=== PATIENT | male | born 1960 | race Caucasian/White ===

== ENCOUNTER 2017-05-13 17:10 | Emergency (ER) | payer BC, SELFPAY | END 2017-05-13 18:22 | disposition home or self-care (01) | PROVIDERS: Emergency Provider Nurse Practitioner; Family Provider Internal Medicine; Visit Provider Nurse Practitioner | DX: J06.9 Acute upper respiratory infection, unspecified (principal); J45.909 Unspecified asthma, uncomplicated; E78.5 Hyperlipidemia, unspecified; Z79.899 Other long term (current) drug therapy | CPT/HCPCS: 87804; 87880; 99201 ==

== ENCOUNTER → 2017-09-13 14:42 | Outpatient (CLI) | payer BC, SELFPAY ==
[2017-09-13 14:52] LABS: Basophils # 0.1 K/mm3 (0-0.2); Basophils % 0.6 % (0.1-2.0); Eosinophils # 0.3 K/mm3 (0.0-0.4); Eosinophils % 2.3 % (0.1-12.0); Hematocrit 42.9 % (42.0-52.0); Hemoglobin 14.7 g/dL (14.1-18.0); Lymphocytes # 1.6 K/mm3 (0.7-4.5); Lymphocytes % 13.8 K/mm3 (10-50); Mean Corpuscular HGB Conc 34.4 g/dL (31.8-35.4); Mean Corpuscular Hemoglobin 29.8 pg (27.0-31.2); Mean Corpuscular Volume 86.7 fl (80-94); Monocytes # 0.5 K/mm3 (0.1-1.0); Monocytes % 4.6 % (1.7-9.3); Neutrophils # 8.9 K/mm3 (1.8-7.8); Neutrophils % 78.7 % (37.0-80.0); Platelet Count 240 K/mm3 (142-424); Red Blood Count 4.95 M/mm3 (4.60-6.20); Red Cell Distribution Width 13.9 % (11.5-17.5); White Blood Count 11.3 K/mm3 (4.8-10.8)
[2017-09-13 15:11] LABS: Alanine Aminotransferase 45 U/L (12-78); Albumin/Globulin Ratio 1.1 (1.1-1.8); Alkaline Phosphatase 118 U/L (46-116); Anion Gap 15.3 mEq/L (5-15); Aspartate Amino Transferase 29 U/L (15-37); Bilirubin,Total 0.5 mg/dL (0.2-1.0); Blood Urea Nitrogen 19 mg/dL (7-18); Calcium 9.3 mg/dL (8.5-10.1); Carbon Dioxide 25 mmol/L (21.0-32.0); Chloride 104 mmol/L (98-107); Creatinine,Serum 0.97 mg/dL (0.70-1.30); Estimated Glomerular Filt Rate 80 ml/min (>60); GFR (African American) 97 ML/MIN (>60); Globulin 3.6 gm/dl (1.3-3.2); Glucose 99 mg/dL (74-106); Potassium 4.3 mmoL/L (3.5-5.1); Sodium 140 mmol/L (136-145); Total Protein,Serum 7.6 gm/dL (6.4-8.2)
--- NOTE | 2017-09-13 16:05 | CT_ITS ---
CT abdomen pelvis wo con CLINICAL INDICATION: Mid and lower abdominal pain with fever and elevated white blood cell count ITS.REASON: FEVER,ELEVATED WBC,ABD PAIN ORDERING PHYSICIAN: Matthew Gardner PATIENT AGE: 57 years COMPARISON: 04/30/2011 TECHNIQUE: Axial images obtained with sagittal and coronal reformats. All CT scans at the facility use one or more dose reduction, viz: automated exposure control; ma/kV adjustment per patient size (including targeted exams where dose is matched to indication; i.e. head); or iterative reconstruction technique. PROCEDURE: Oral Contrast: None IV Contrast: None . FINDINGS: Mild atelectatic or fibrotic changes are present in the right leg and lingula. No focal liver lesion evident. No calcified gallstones apparent. The spleen, adrenal glands, pancreas are unremarkable. No renal calculi or ureteral calculi. No hydronephrosis. Tiny umbilical hernia containing fat. Prior appendectomy. There is focal thickening of the proximal aspect of the sigmoid colon with focal thickening of a diverticulum at this region consistent with diverticulitis. Increased density is present within this diverticulum. This is in the lower and central aspect of the abdomen/pelvis anteriorly. There is associated stranding of adjacent peritoneal fat. No abscess or perforation apparent. There is diverticulosis of the descending and sigmoid colon No acute bony anomalies. IMPRESSION: Diverticulitis of the sigmoid colon with diverticulosis of the descending and sigmoid colon. No evidence of perforation or abscess.
== END ==
PROVIDERS: PCP Internal Medicine; Visit Provider Internal Medicine
DX: R10.31 Right lower quadrant pain (principal); R50.9 Fever, unspecified; D72.829 Elevated white blood cell count, unspecified
CPT/HCPCS: 74176; 80053; 85025

== ENCOUNTER → 2019-02-14 11:18 | Outpatient (CLI) | payer BC, SELFPAY ==
--- NOTE | 2019-02-14 11:25 | XR_ITS ---
PROCEDURE: XR CHEST 2V CLINICAL HISTORY: ST POSTERIOR CHEST/SHOULDER PAIN COMPARISON: CXR1 CHEST-PORTABLE from 07/25/2012 CXR CHEST(2 VIEWS-NOT PORTABLE) from 09/15/2012 CXR CHEST(2 VIEWS-NOT PORTABLE) from 01/14/2015 CTAC CTA-CHEST from 02/08/2015 FINDINGS: Borderline cardiomegaly without failure. There are fibrotic changes present overlying the anterior aspect of the heart. No lobar consolidation or collapse. The lungs are clear without infiltrates, suspicious nodules, or pleural effusions. No acute bony abnormalities. IMPRESSION: No change with no acute finding Dictated by: Caleb Jj MD 02/14/2019 12:46 Electronically signed by Caleb Jj MD in [facility] 02/14/2019 12:46
--- NOTE | 2019-02-14 11:25 | XR_ITS ---
PROCEDURE: XR LUMBAR SPINE MIN 4V CLINICAL INDICATION: LUMBAGO Right-sided low back pain COMPARISON: LS5 LUMBAR SPINE 5 VIEWS from 04/17/2016 FINDINGS: There is mild lumbar curvature convex right. No fracture or dislocation. No lytic or blastic change. There degenerate disc disease at L4-5 and L5-S1 with facet arthritic changes. IMPRESSION: Degenerative changes, no acute finding. No significant change from 04 17 16 Dictated by: Caleb Jj MD 02/14/2019 12:27 Electronically signed by Caleb Jj MD in [facility] 02/14/2019 12:28
== END ==
PROVIDERS: PCP Internal Medicine; Visit Provider Internal Medicine
DX: M54.41 Lumbago with sciatica, right side (principal); R07.89 Other chest pain
CPT/HCPCS: 71046; 72110

== ENCOUNTER → 2021-06-04 11:38 | Outpatient (CLI) | payer BC, SELFPAY | PROVIDERS: PCP Internal Medicine; Visit Provider Internal Medicine | DX: Z20.822 Contact with and (suspected) exposure to COVID-19 (principal) | CPT/HCPCS: C9803; U0003; U0005 ==

== ENCOUNTER → 2021-08-01 13:05 | Outpatient (CLI) | payer BC, SELFPAY ==
[2021-08-01 14:47] LABS: Basophils # 0.1 K/mm3 (0-0.2); Basophils % 1.6 % (0.1-2.0); Eosinophils # 0.2 K/mm3 (0.0-0.4); Eosinophils % 3.4 % (0.1-12.0); Hematocrit 43.1 % (42.0-52.0); Hemoglobin 14.4 g/dL (14.1-18.0); Lymphocytes # 1.3 K/mm3 (0.7-4.5); Mean Corpuscular HGB Conc 33.4 g/dL (31.8-35.4); Mean Corpuscular Hemoglobin 29.7 pg (27.0-31.2); Mean Corpuscular Volume 88.8 fl (80-94); Mean Platelet Volume 9.6 fl (7.4-10.4); Monocytes # 0.3 K/mm3 (0.1-1.0); Monocytes % 5.5 % (1.7-9.3); Neutrophils # 3.7 K/mm3 (1.8-7.8); Neutrophils % 66.4 % (37.0-80.0); Platelet Count 246 K/mm3 (142-424); Red Blood Count 4.85 M/mm3 (4.60-6.20); Red Cell Distribution Width 13.9 % (11.5-17.5); White Blood Count 5.6 K/mm3 (4.8-10.8)
[2021-08-01 15:06] LABS: Chloride 101 mmol/L (98-107)
[2021-08-01 15:07] LABS: Potassium 4.6 mmoL/L (3.5-5.1); Sodium 137 mmol/L (136-145)
[2021-08-01 15:09] LABS: Alanine Aminotransferase 46 U/L (12-78)
[2021-08-01 15:10] LABS: Albumin Level 4.9 g/dl (3.5-5.0); Alkaline Phosphatase 75 U/L (38-126); Anion Gap 14.6 mEq/L (5-15); Aspartate Amino Transferase 51 U/L (17-59); Bilirubin,Total 0.8 mg/dl (0.2-1.3); Calcium 8.9 mg/dl (8.4-10.2); Carbon Dioxide 26 mmol/L (22.0-30.0); Chol/HDL Ratio 3.5 (1-3.5); Cholesterol 145 mg/dl (140-200); Globulin 2.4 g/dL (1.3-3.2); Glucose 90 mg/dl (74-100); HDL Cholesterol 42 mg/dl (40-60); Total Protein,Serum 7.3 g/dl (6.3-8.2); Triglycerides 72 mg/dl (30-150); VLDL Cholesterol 14 mg/dL (0-40)
[2021-08-01 15:51] LABS: Blood Urea Nitrogen 29 mg/dl (9-20); Estimated Glomerular Filt Rate 99 ml/min (>60); GFR (African American) 119 ML/MIN (>60)
[2021-08-01 16:03] LABS: Direct LDL Cholesterol 86.13 mg/dL (100-129)
[2021-08-01 16:22] LABS: Prostate Specific Ag Screen 1.7 ng/ml (0.0-4.0)
== END ==
PROVIDERS: Visit Provider Internal Medicine
DX: I10 Essential (primary) hypertension (principal); E78.5 Hyperlipidemia, unspecified; Z12.5 Encounter for screening for malignant neoplasm of prostate
CPT/HCPCS: 80053; 80061; 85025; G0103

== ENCOUNTER → 2021-09-19 15:38 | Outpatient (CLI) | payer BC, SELFPAY ==
--- NOTE | 2021-09-19 15:41 | XR_ITS ---
FINAL REPORT CLINICAL HISTORY: KNEE INJURY TODAY.... LEFT KNEE PAIN FINDINGS: LEFT KNEE Three views were obtained. There is no acute fracture or dislocation. There is moderate medial compartment joint space narrowing. There is sharpening of the tibial spines. A small joint effusion is identified. No soft tissue abnormality is identified. IMPRESSION: Degenerative changes and small joint effusion. Reviewed, Interpreted and Dictated by Mateus Rhoades MD Transcribed by Delmy Lemus Authenticated by Mateus Rhoades MD on 09/19/2021 04:25:20 PM [facility]
== END ==
PROVIDERS: PCP Internal Medicine; Visit Provider Internal Medicine
DX: M25.562 Pain in left knee (principal)
CPT/HCPCS: 73562

== ENCOUNTER → 2022-06-26 13:13 | Outpatient (CLI) | payer BC, SELFPAY ==
[2022-06-26 15:57] LABS: Alanine Aminotransferase 42 U/L (12-78); Albumin Level 4.8 g/dl (3.5-5.0); Albumin/Globulin Ratio 1.8 (1.1-1.8); Alkaline Phosphatase 73 U/L (38-126); Aspartate Amino Transferase 47 U/L (17-59); Bilirubin,Total 0.7 mg/dl (0.2-1.3); Blood Urea Nitrogen 26 mg/dl (9-20); Calcium 9.1 mg/dl (8.4-10.2); Carbon Dioxide 26 mmol/L (22.0-30.0); Chloride 107 mmol/L (98-107); Cholesterol 133 mg/dl (140-200); Estimated Glomerular Filt Rate 86 ml/min (>60); GFR (African American) 104 ML/MIN (>60); Globulin 2.7 g/dL (1.3-3.2); Glucose 96 mg/dl (74-100); HDL Cholesterol 33 mg/dl (40-60); Sodium 142 mmol/L (136-145); Total Protein,Serum 7.5 g/dl (6.3-8.2); Triglycerides 80 mg/dl (30-150); VLDL Cholesterol 16 mg/dL (0-40)
[2022-06-26 16:09] LABS: Direct LDL Cholesterol 86.45 mg/dL (100-129)
[2022-06-26 16:26] LABS: Prostate Specific Ag Screen 2.1 ng/ml (0.0-4.0)
== END ==
PROVIDERS: PCP Internal Medicine; Visit Provider Internal Medicine
DX: I10 Essential (primary) hypertension (principal); E78.5 Hyperlipidemia, unspecified; Z12.5 Encounter for screening for malignant neoplasm of prostate
CPT/HCPCS: 80053; 80061; G0103

== ENCOUNTER 2023-10-15 12:17 | Outpatient (CLI) | payer BC, SELFPAY ==
[2023-10-15 12:30] LABS: Basophils # 0.1 K/mm3 (0-0.2); Basophils % 1.1 % (0.1-2.0); Eosinophils # 0.2 K/mm3 (0.0-0.4); Eosinophils % 2.7 % (0.1-12.0); Hematocrit 42.9 % (42.0-52.0); Hemoglobin 14.4 g/dL (14.1-18.0); Lymphocytes # 1.4 K/mm3 (0.7-4.5); Lymphocytes % 17.2 % (10-50); Mean Corpuscular HGB Conc 33.6 g/dL (31.8-35.4); Mean Corpuscular Hemoglobin 30.3 pg (27.0-31.2); Mean Corpuscular Volume 90.2 fl (80-94); Mean Platelet Volume 8.7 fl (7.4-10.4); Monocytes # 0.4 K/mm3 (0.1-1.0); Monocytes % 4.6 % (1.7-9.3); Neutrophils # 6.2 K/mm3 (1.8-7.8); Neutrophils % 74.4 % (37.0-80.0); Platelet Count 218 K/mm3 (142-424); Red Blood Count 4.75 M/mm3 (4.60-6.20); Red Cell Distribution Width 14.2 % (11.5-17.5); White Blood Count 8.3 K/mm3 (4.8-10.8)
[2023-10-15 12:56] LABS: Chloride 105 mmol/L (98-107); Potassium 4.7 mmoL/L (3.5-5.1); Sodium 140 mmol/L (136-145)
[2023-10-15 12:58] LABS: Blood Urea Nitrogen 19 mg/dl (9-20)
[2023-10-15 12:59] LABS: Alanine Aminotransferase 45 U/L (12-78); Albumin Level 4.6 g/dl (3.5-5.0); Albumin/Globulin Ratio 1.7 (1.1-1.8); Alkaline Phosphatase 82 U/L (38-126); Anion Gap 12.7 mEq/L (5-15); Aspartate Amino Transferase 46 U/L (17-59); Bilirubin,Total 0.9 mg/dl (0.2-1.3); Calcium 9.8 mg/dl (8.4-10.2); Carbon Dioxide 27 mmol/L (22.0-30.0); Cholesterol 169 mg/dl (140-200); Creatine Kinase 201 U/L (55-170); Estimated Glomerular Filt Rate 98 ml/min (>60); GFR (African American) 119 ML/MIN (>60); Globulin 2.7 g/dL (1.3-3.2); Glucose 95 mg/dl (74-100); Total Protein,Serum 7.3 g/dl (6.3-8.2); Triglycerides 103 mg/dl (30-150); VLDL Cholesterol 21 mg/dL (0-40)
[2023-10-15 13:00] LABS: Chol/HDL Ratio 3.8 (1-3.5); HDL Cholesterol 44 mg/dl (40-60)
[2023-10-15 13:23] LABS: Direct LDL Cholesterol 103.98 mg/dL (100-129)
[2023-10-15 13:29] LABS: Erythrocyte Sedimentation Rate 15 mm/hr (0-20)
[2023-10-15 13:30] LABS: Thyroid Stimulating Hormone 3.24 uIU/mL (0.465-4.68)
[2023-10-15 13:43] LABS: Prostate Specific Ag Screen 2.8 ng/ml (0.0-4.0)
[2023-10-15 14:19] LABS: Vitamin B12 895 pg/mL (239-931)
[2023-10-15 14:22] LABS: Folate > 20.00 ng/mL
[2023-10-19 14:22] LABS: Albumin 4.1 g/dL (2.9-4.4); Alpha-1-Globulin 0.3 g/dL (0.0-0.4); Alpha-2-Globulin 0.8 g/dL (0.4-1.0); Gamma Globulin 0.9 g/dL (0.4-1.8); Protein, Total 7.3 g/dL (6.0-8.5)
[2023-10-24 08:15] LABS: PDF SCANNED IMAGE
== END 2023-10-15 23:59 | disposition home or self-care (01) ==
LOC: LAB.DROPOF 12:17
PROVIDERS: PCP Internal Medicine; Visit Provider Internal Medicine
DX: I10 Essential (primary) hypertension (principal); E78.5 Hyperlipidemia, unspecified; J30.9 Allergic rhinitis, unspecified; M47.817 Spondylosis without myelopathy or radiculopathy, lumbosacral region; N40.1 Benign prostatic hyperplasia with lower urinary tract symptoms; Z12.5 Encounter for screening for malignant neoplasm of prostate; G60.9 Hereditary and idiopathic neuropathy, unspecified; Z79.899 Other long term (current) drug therapy
CPT/HCPCS: 80053; 80061; 82550; 82607; 82746; 84155; 84165; 84443; 85025; 85651; G0103

== ENCOUNTER 2024-04-10 15:08 | Emergency (ER) | payer BC, SELFPAY ==
[2024-04-10 15:09] VITALS: BP 165/90; PULSE 73; RESP 16; TEMP 37.1; O2SAT 97; BMI 26.5
[2024-04-10 15:19] VITALS: BP 165/90; PULSE 76; RESP 18; O2SAT 96
[2024-04-10] MEDS: TET/DIPHTH/PERT-ADULT 0.5ML SYRINGE 0.5 ML IM (15:38)
--- NOTE | 2024-04-10 15:41 | ED_ITS ---
Discharge Plan Prescriptions Prescriptions: No Action amlodipine 10 mg tablet 10 mg PO DAILY Patient Comments: TAKE ONE TABLET BY MOUTH EVERY DAY rosuvastatin 20 mg tablet 20 mg PO DAILY Patient Comments: TAKE ONE TABLET BY MOUTH EVERY DAY AT BEDTIME amoxicillin 500 mg capsule 1,000 mg PO BID Qty: 40 0RF Nexlizet 180-10 mg tablet 1 tab PO DAILY Qty: 90 3RF Referrals Follow up/Referrals: Matthew Gardner MD [Primary Care Provider] - See instructions Activity Restrictions/Add. Instructions Additional Instructions/Restrictions: [place] to be removed in 10 to 14 days. Pat with soapy water to clean, dab with dry towel to dry. Do not scrub. Call your family doctor to establish care for this visit to the emergency department and schedule follow-up within 48 hours to ensure improvement. If you have any worsening of your condition or any other concerning signs or symptoms, return to the emergency department or your primary care doctor for further evaluation. Clinical Impressions Clinical Impression: Laceration of scalp Instructions Patient Instructions: DI for Laceration Repair Print Language Print Language: Indonesian Discharge ED Provider: Eduardo Moore General Adult HPI General Chief complaint: Wound/Laceration Stated complaint: AO04/10@1445 head lac Time Seen by Provider: 04/10/24 15:20 Mode of Arrival: Ambulatory Source of Information: Patient Limitations: No Limitations Description of Symptoms (Recalled from ER Triage Doc. by RN): pt reports to the er for laceration to the top of his head, states he hit his head on a latch on his van, bleeding controlled, denies blood thinners, states it happened about 20 mins prior to arrival, denies headache History of Present Illness HPI narrative: Please note that above description of symptoms, in this electronic medical record under categorization of recalled from ER triage doctor by RN are reflective of an initial nursing assessment, however, is not reflective of my full history and physical exam that was personally taken and clarified. Consequentially, this preceding description of symptoms, which may include the patient's categorized chief complaint in the EMR, do not reflect my personal clinical impression, and the ultimate description of history of present illness and patient stated complaints should be deferred to this section of the note. Unless stated otherwise or congruent with this section of the note, additional signs, symptoms, or incongruence should be interpreted as inaccurate with my clinical impression. Related Data Home Medications ?Medication ?Instructions ?Recorded ?Confirmed amlodipine 10 mg tablet 10 mg PO DAILY 03/28/24 03/28/24 rosuvastatin 20 mg tablet 20 mg PO DAILY 03/28/24 03/28/24 Previous Rx's ?Medication ?Instructions ?Recorded bempedoic acid 180 mg-ezetimibe 10 1 tab PO DAILY #90 tabs 11/13/23 mg tablet (Nexlizet) amoxicillin 500 mg capsule 1,000 mg (2 x 500 mg) PO BID #40 03/28/24 caps Allergies Allergy/AdvReac Type Severity Reaction Status Date / Time ibuprofen (From MOTRIN) Allergy Unknown Verified 03/28/24 14:18 octreotide (OCTREOTIDE) Allergy Unknown Verified 03/28/24 14:18 Ibuprofen Allergy Unknown Uncoded 05/11/17 14:22 Nonsteroidal Allergy Unknown Uncoded 05/11/17 14:22 Antiinflammatory Drug OCTREOTIDE Allergy Unknown Uncoded 05/11/17 14:22 [facility] Disclaimer: The information contained in this section may have been updated after the patient was seen, as this information can be updated by other users. Medical History (Updated 04/10/24 @ 15:42 by Eduardo Moore MD) Paroxysmal atrial fibrillation Social History (Updated 03/28/24 @ 17:11 by Matthew Gardner MD) Smoking Status: Never smoker alcohol intake: current alcohol intake frequency: holidays/special occasions only current occupational status: employed Travel in the last 8 weeks: Inside the [place] Other Medical History Have you received the Pneumonia Vaccine: Yes ROS Obtained: Yes All systems reviewed & no additional complaints except as documented Physical Exam General General appearance: alert Head Head exam: normocephalic and other (4 cm L-shaped laceration top of scalp. Hemostatic) Eye Eye exam: Present normal appearance, PERRL and EOMI Neck Neck exam: Present normal inspection, full ROM and trachea midline Respiratory Respiratory exam: Absent respiratory distress, wheezes, stridor, accessory muscle use or prolonged expiratory phase Cardiovascular Cardiovascular exam: Present other (Pulses equal symmetric in upper and lower extremities) Abdominal Exam Abdominal exam: Present soft; Absent distention, tenderness or pulsatile mass Extremities Exam Extremities exam: Absent edema Neurological Exam Neurological exam: Present alert, oriented X3 and CN II-XII intact; Absent motor sensory deficit Skin Skin exam: Present warm and dry; Absent diaphoresis or erythema Medical Decision Making Medical Records Medical records reviewed: Yes I reviewed the patient's medical records. Screening: Per USPSTF and CDC recommendations, given the prevalence of disease in our region, it is our hospital?s policy to screen for HIV and viral Hepatitis for all patients aged 18 and over and those with ongoing risk factors. Jaret Inquiry Pt receiving controlled substance: No Jaret was queried for this patient: No Vital Signs: 04/10/24 15:09 04/10/24 15:19 04/10/24 15:53 Temperature 98.8 F 98.1 F Temperature Source Oral Oral Pulse Rate 76 63 Pulse Rate [Right Radial] 73 Respiratory Rate 16 18 18 Blood Pressure 165/90 H 169/91 H Blood Pressure [Right Arm] 165/90 H Blood Pressure Mean 101 Blood Pressure Mean [Right Arm] 115 Blood Pressure Source Automatic Cuff Blood Pressure Source [Right Arm] Automatic Cuff Blood Pressure Position Sitting Blood Pressure Position [Right Arm] Sitting 02 Sat by Pulse Oximetry 97 96 Oxygen Delivery Method Room Air Room Air Orders (Tests/Meds): ED MEDICATIONS Discontinued Medications Generic Name Dose Route Start Last Admin Trade Name Freq PRN Reason Stop Dose Admin Tetanus/Reduced Diphtheria/Acell Pertussis 0.5 ml 04/10/24 15:30 04/10/24 15:38 Tet/Diphth/Pert-Adult 0.5ml Syringe IM 04/10/24 15:31 0.5 ml .ONCE ONE Administration Medical Decision Narrative: 64-year-old male no relevant medical history presenting with laceration on top of scalp. Happened just for arrival on the van he was getting out of. Unknown last tetanus. No loss of consciousness. Not on blood thinners. On physical exam, patient has 4 cm L-shaped laceration. Hemostatic, does not violate muscle or aponeurosis. No evidence of depressed or basilar skull fracture. Wound was cleaned, stapled closed with 4 jaun. Patient given Tdap. Because patient at baseline without signs or symptoms of clinical decompensation, deemed appropriate for discharge. Results were relayed to patient who voiced understanding and were agreeable to outpatient management and follow up. I discussed my clinical impression with patient and answered all questions. At this time, the evidence for any other entities in the differential is insufficient to warrant any further testing or ED observation. This was explained as well. Advisory was given that persistent or worsening symptoms require further evaluation. I confirmed the understanding of this discussion. Psychologist Experimental disclaimer Much of this encounter note is an electronic diving instructor spoken language to printed text. Electronic diving instructor of the spoken language may permit errors. Although I have reviewed the note, some errors may still exist. Procedures Laceration Laceration 1: Site: scalp Size (cm): 4 Description: linear and irregular Depth: involves subcutaneous layer Pre-repair: wound explored Skin layer closed with: other ([place]) Number of sutures: 4 Technique: simple, interrupted Critical Care Critical Care Time Critical Care Time: No
[2024-04-10 15:53] VITALS: BP 169/91; PULSE 63; RESP 18; TEMP 36.7; O2SAT 96
== END 2024-04-10 15:54 | disposition home or self-care (01) ==
PROVIDERS: Emergency Provider Emergency Medicine; PCP Internal Medicine
DX: S01.01XA Laceration without foreign body of scalp, initial encounter (principal); L98.9 Disorder of the skin and subcutaneous tissue, unspecified; Z23 Encounter for immunization; W22.8XXA Striking against or struck by other objects, initial encounter; Y93.89 Activity, other specified; Y92.89 Other specified places as the place of occurrence of the external cause
CPT/HCPCS: 12002; 90715; 99283

== ENCOUNTER 2024-07-20 10:40 | Outpatient (CLI) | payer BC, SELFPAY ==
--- NOTE | 2024-07-20 10:44 | XR_ITS ---
FINAL REPORT CLINICAL HISTORY: Left knee pain and swelling for 3 weeks COMPARISON: None FINDINGS: LEFT KNEE: 3 images of the left knee were obtained. There is no evidence of fracture or dislocation. Mild degenerative changes present. A large joint effusion is noted. IMPRESSION: Stable mild degenerative changes with large joint effusion. Reviewed, Interpreted and Dictated by Mason Bradshaw MD Transcribed by Bell Cotter Authenticated and [facility]
== END 2024-07-20 23:59 | disposition home or self-care (01) ==
LOC: RAD 10:41
PROVIDERS: PCP Internal Medicine; Visit Provider Internal Medicine
DX: M25.562 Pain in left knee (principal); M25.462 Effusion, left knee
CPT/HCPCS: 73562

== ENCOUNTER 2025-03-01 10:38 | Outpatient (CLI) | payer BC, SELFPAY ==
--- NOTE | 2025-03-01 10:41 | XR_ITS ---
FINAL REPORT CLINICAL HISTORY: Left hip and groin pain COMPARISON: None FINDINGS: LEFT HIP Two views of the left hip and an AP pelvis view were obtained. There is no acute fracture or dislocation. The joint spaces demonstrate moderate degenerative change. The visualized bony structures are well aligned. There is no acute soft tissue abnormality. IMPRESSION: Degenerative change without acute abnormality identified. Reviewed, Interpreted and Dictated by Yonis Almaguer MD Transcribed by Kailee Gauthier Authenticated and [facility]
--- NOTE | 2025-03-01 10:41 | XR_ITS ---
FINAL REPORT CLINICAL HISTORY: Thoracic back pain COMPARISON: None FINDINGS: Three views of the thoracic spine were obtained. There is no fracture present. There is no malalignment. The vertebrae are normal in height. There are moderate degenerative changes. IMPRESSION: Degenerative changes without acute process. Reviewed, Interpreted and Dictated by Yonis Almaguer MD Transcribed by Kailee Gauthier Authenticated and . [facility]
--- NOTE | 2025-03-01 10:41 | XR_ITS ---
FINAL REPORT CLINICAL HISTORY: Thoracic back pain, hypertension COMPARISON: January 2019 FINDINGS: CHEST 2 VIEW The heart is normal in size. The mediastinum is unremarkable. There is a right lower lobe nodule. There is no pneumothorax. Osseous structures unremarkable. IMPRESSION: Nodular opacity as above. Follow-up to complete resolution recommended. Reviewed, Interpreted and Dictated by Yonis Almaguer MD Transcribed by Kailee Gauthier Authenticated and [facility]
--- NOTE | 2025-03-01 10:41 | XR_ITS ---
FINAL REPORT CLINICAL HISTORY: Right hip and groin pain COMPARISON: None FINDINGS: RIGHT HIP Two views of the right hip and an AP pelvis view were obtained. There is no acute fracture or dislocation. The joint spaces are well-preserved. The visualized bony structures are well aligned. There is no acute soft tissue abnormality. IMPRESSION: No acute abnormality identified. Reviewed, Interpreted and Dictated by Yonis Almaguer MD Transcribed by Kailee Gauthier Authenticated and [facility]
[2025-03-01 17:15] LABS: Hematocrit 43.4 % (42.0-52.0); Hemoglobin 14.5 g/dL (14.1-18.0); Immature Granulocytes % 0.4 %; Mean Corpuscular HGB Conc 33.4 g/dL (31.8-35.4); Mean Corpuscular Hemoglobin 29.4 pg (27.0-31.2); Mean Corpuscular Volume 87.9 fl (80-94); Nucleated Red Blood Cells % 0 %; Platelet Count 250 K/mm3 (142-424); Red Blood Count 4.94 M/mm3 (4.60-6.20); Red Cell Distribution Width-SD 42.5 fL; White Blood Count 5.2 K/mm3 (4.8-10.8)
[2025-03-01 18:58] LABS: Alanine Aminotransferase 41 U/L (12-78); Albumin Level 4.7 g/dl (3.5-5.0); Albumin/Globulin Ratio 1.8 (1.1-1.8); Alkaline Phosphatase 103 U/L (38-126); Anion Gap 17.8 mEq/L (5-15); Aspartate Amino Transferase 45 U/L (17-59); Bilirubin,Total 0.9 mg/dl (0.2-1.3); Blood Urea Nitrogen 33 mg/dl (9-20); Calcium 9.4 mg/dl (8.4-10.2); Carbon Dioxide 26 mmol/L (22.0-30.0); Chloride 102 mmol/L (98-107); Cholesterol 178 mg/dl (140-200); Creatinine,Serum 0.90 mg/dl (0.66-1.25); Estimated Glomerular Filt Rate 85 ml/min (>60); GFR (African American) 103 ML/MIN (>60); Globulin 2.6 g/dL (1.3-3.2); Glucose 87 mg/dl (74-100); HDL Cholesterol 37 mg/dl (40-60); Potassium 5.8 mmoL/L (3.5-5.1); Sodium 140 mmol/L (136-145); Total Protein,Serum 7.3 g/dl (6.3-8.2); Triglycerides 143 mg/dl (30-150)
== END 2025-03-01 23:59 | disposition home or self-care (01) ==
LOC: RAD 10:39
PROVIDERS: PCP Internal Medicine; Visit Provider Internal Medicine
DX: M47.814 Spondylosis without myelopathy or radiculopathy, thoracic region (principal); M16.12 Unilateral primary osteoarthritis, left hip; M25.551 Pain in right hip; R91.1 Solitary pulmonary nodule; I10 Essential (primary) hypertension; I25.10 Atherosclerotic heart disease of native coronary artery without angina pectoris; E78.5 Hyperlipidemia, unspecified; Z12.5 Encounter for screening for malignant neoplasm of prostate
CPT/HCPCS: 71046; 72072; 73502; 80053; 80061; 85025; G0103

== ENCOUNTER 2025-03-09 13:39 | Outpatient (CLI) | payer BC, SELFPAY ==
--- OUTSIDE RECORDS SUMMARY | 2019-07-20 06:00 | XMS_ITS | Continuity of Care Document ---
Author Organization [facility] Address [address] [place] [address] Phone Care Team Providers Care Scheme Technician Name Role Phone Filiberto OD, Ginette Unavailable Unavailable Allergies, Adverse Reactions, Alerts Substance Reaction Status Criticality octreotide bottoms out BP Active No Informatio n ibuprofen GI Problems(moderate) Active No Inf ormation Medications Medication Instructions Dosage Effective Dates (start - stop) Status Comments FML Liquifilm 0.1 % eye drops,suspension instill 1 drop by ophthalmic route every day into both eye(s) - Active Durezol 0.05 % eye drops Use 1 drop QID in OS daily after surgery - Active losartan 100 mg tablet take 1 tablet by oral route every day 100 MG - Active atorvastatin 10 mg tablet take 0.5 tablet by oral route every day 5 MG - Active Metamucil 0.4 gram capsule - Active Miralax 17 gram/dose oral powder take (17G) by oral route every day mixed with 8 oz. water, juice, soda, coffee or tea - Active Singulair 10 mg tablet take 1 tablet by oral route every day in the evening 10 MG - Active Probiotic 10 billion cell capsule take 1 capsule by oral route every day 1 capsule - Active Vitamin D3 2,000 unit tablet take 1 tablet by oral route every day 1 tablet - Active Zyrtec 10 mg capsule take 1 tablet by oral route every day 1 tablet - Active Fluorometholone 0.1% Op Susp INSTILL ONE DROP INTO AFFECTED EYE(S) FOUR TIMES DAILY * SHAKE WELL BEFORE USE * 1 drop - No Longer Active Procedures Procedure Date EYE EXAM, Intermediate, Established POSTOP FOLLOW-UP VISIT POSTOP FOLLOW-UP VISIT POSTOP FOLLOW-UP VISIT POSTOP FOLLOW-UP VISIT CORNEAL TRNSPL, ENDOTHELIAL CATARACT SURG W/IOL, 1 STAGE OPHTHALMIC BIOMETRY POSTOP FOLLOW-UP VISIT POSTOP FOLLOW-UP VISIT POSTOP FOLLOW-UP VISIT POSTOP FOLLOW-UP VISIT CORNEAL TRNSPL, ENDOTHELIAL CATARACT SURG W/IOL, 1 STAGE EYE EXAM, Comprehensive, Established Apr OPHTHALMIC BIOMETRY EYE EXAM, Comprehensive, New CORNEAL TOPOGRAPHY SPECIAL ANTERIOR SEGMENT BILLY TOGRAPHY (ENDOTHELIAL CELL COUNT) W/INTERPRET&REPORT Advance Directives Directive Yes / No Effective Date File Name No Information Encounters Encounter Description Practice Location Reason(s) For Visit Diagnoses Date Provider Providers Copied on Encounter [facility] [place] [facility], [address] [place] [address], [id number], tel:[phone] [facility] Post Triple/EK 0 De Los Santos Ginette. [address] [place] [address], [id number] , . tel:[phone] Referring Provider: [address], [place], [address] . tel:[phone] [facility] [place] [facility], [address] [place] [address], [id number], tel:[phone] KEVIN EscobedoAlberta KELSEA No Information 0 De Los Santos Ginette. [address] [place] [address], [id number] , . tel:[phone] [facility] [place] [facility], [address] [place] [address], [id number], tel:[phone] KEVIN DOE PO (chief complaint) P/Triple w/ EK 9 De Los Santos Ginette. [address] [place] [address], [address] [place] [address] , . tel:[phone] Referring Provider: [address], [place], [address] . tel:[phone] [facility] [place] [facility], [address] [place] [address], [address] [place] [address], tel:[phone] JasonCAROLINE Topete Jim NADER Post Op (chief complaint) P/Triple w/ EK 9 De Los Santos Ginette. [address] [place] [address], [address] [place] [address] , . tel:[phone] Referring Provider: [address], [place], [address] . tel:[phone] [facility] [place] [facility], [address] [place] [address], [id number], tel:[phone] JasonCAROLINE Topete Jim DOE Triple w/ EK check (chief complaint) P/Triple w/ EK 9 De Los Santos Ginette. [address] [place] [address], [address] [place] [address] , . [phone] Referring Provider: [address], [place], [address] . tel:[phone] [facility] [place] [facility], [address] [place] [address], [id number], tel:[phone] JasonCAROLINE Topete Jim NADER PO (chief complaint) P/Triple w/ EK 9 De Los Santos Ginette. [address] [place] [address], [id number] , . [phone] Referring Provider: [address], [place], [address] . tel:[phone] [facility], [address] [place] [address], [id number], tel:[phone] [facility] No Information 9 Beti Alston. [address] [place] [address], [address] [place] [address] , . tel:[phone] Referring Provider: [address], [place], [address] . tel:[phone] [facility] [place] [facility], [address] [place] [address], [address] [place] [address], tel:[phone] [facility] [place] No Information 9 Beti Alston. [address] [place] [address], [address] [place] [address]. tel:[phone] Referring Provider: Gamaliel Lemos, [address] [place] [address], [address] . tel:[phone] [facility], [address] [place] [address], [address] [place] [address], tel:[phone] [facility] [place] No Information 9 De Los Santos Ginette. [address] [place] [address], [address] [place] [address] , . tel:[phone] [facility], [address] [place] [address], [address] [place] [address], tel:[phone] [facility] [place] Triple w/ EK (chief complaint) P/Triple w/ EK 9 De Los Santos Ginette. [address] [place] [address], [address] [place] [address] , . tel:[phone] Referring Provider: [address], [place], [address] . tel:[phone] [facility] [place] [facility], [address] [place] [address], [id number], tel:[phone] KEVIN DOE EK follow up (chief complaint) P/Triple w/ EKFuchs' dystrophyCataract, nuclear sclerosis, right eye 9 De Los Santos Ginette. [address] [place] [address], [address] [place] [address] , . tel:[phone] Referring Provider: [address], [place], [address] . tel:[phone] [facility], [address] [place] [address], [id number], tel:[phone] KEVIN DOE PO (chief complaint) P/Triple w/ EK 9 Piracha Gamaliel. [address] [place] [address], [address] [place] [address] , . tel:[phone] Referring Provider: [address], [place], [address] . tel:[phone] [facility], [address] [place] [address], [id number], tel:[phone] KEVIN DOE PO (chief complaint) P/Triple w/ EK 9 De Los Santos Ginette. [address] [place] [address], [id number] , . tel:[phone] Referring Provider: [address], [place], [address] . tel:[phone] [facility] [place] [facility], [address] [place] [address], [id number], tel:[phone] [facility] No Information 9 Piracha Gamaliel. [address] [place] [address], [address] [place] [address] , . tel:[phone] Referring Provider: [address], [place], [address] . tel:[phone] [facility] [place] [facility], [address] [place] [address], [id number], tel:[phone] KEVIN Topete [facility] Triple eval (chief complaint) Fuchs' dystrophyCombined cataract, bilateral 8 Piracha Gamaliel. [address] [place] [address], [address] [place] [address] , . [phone] Referring Provider: [address], [place], [address] . tel:[phone] [facility], [address] [place] [address], [address] [place] [address], tel:[phone] KEVIN [place] No Information Piracha Gamaliel. [address] [place] [address], [address] [place] [address] , . [phone] Referring Provider: [address], [place], [address] . tel:[phone] [facility], [address] [place] [address], [address] [place] [address], tel:[phone] KEVIN [place] cornea eval (chief complaint) Fuchs' dystrophyCombined cataract, bilateral 8 Filiberto Peng. [address] [place] [address], [id number] , . [phone] Referring Provider: [address], [place], [address] . tel:[phone] Family History Family Member Type Diagnosis Age At Onset Brother Problem (finding) Diabetes mellitus Immunizations Vaccine Date Status Comments Flu (split) (3 yrs or older) administered Source: Source Unspecified Pneumo (2 yrs or older)(PPV) administered Source: Source Unspecified Payers Payer name Insurance type Covered libertarian ID Authoriza tion(s) Ross Abernathy And FEP BL [id number] Social History Type Description Quantity Date Captured Comments Alcohol Use Details Unknown 3 drinks weekly Caffeine Use Details 2 cups per day Tobacco Use Status No Information Smoking Status Former smoker Non-Smoking Tobacco Use Details : No Details Available : No Details Available Sex Male Chief Complaint And Reason For Visit From encounter dated '07/20/2019 10:00'. Triple w/ EK (chief complaint). Description: 7 mo. s/p Triple w/ EK ck OU - Pt states that he cannot tell any changes OU, everything is blurry without glasses . Pt feels like he has a film over OD sometimes.FML QD OU..hp Reason For Referral Reason For Referral No Information History Of Present Illness Encounter Date Complaint History Of Prese nt Illness Triple w/ EK 7 mo. s/p Triple w/ EK ck OU - Pt states that he cannot tell any changes OU, everything is blurry without glasses . Pt feels like he has a film over OD sometimes.FML QD OU..hp PO The 58 year old male presents for 2 mo s/p Triple w/ EK OD (10/12/18) & 6 mo s/p OS 06/01/18. Pt states vision is stable, not having much difficulty after updating lens in glasses OS only. Durezol BID ODFML QD OSMuro 128 aminta QPM OU when he remembers Post Op Pt 5 wks s/p Tri ple w/EK OD. States vision has improved since sx OU. Using Durezol QID OD, FML QD OS. Using Whit ointment OD QHS. hx Triple w/ EK OS x 5 months. Triple w/ EK check P/Triple w/EK OD (10/12/18) Patient reports OD VA is stable, and has improved since last visit. Denies flash/ floaters. OS VA is stable, no change since last visit. Using drop as directed.Hx: Triple w/EK OS 06/01/18Ocuflox QID ODDurezol QID ODFML QD OS PO The 58 year old male presents for 1 day s/p Triple w/ EK OD. H/o Triple w/ EK OS 06/11. Pt states vision is still blurry but sx went well for the most part.FML QD OSOcuflox QID ODDurezol QID OD Triple w/ EK p/Triple w/ EK O S 06/01/18 - Pt states that he has not had trouble OS since last visit.Durezol BID OS(2nd eye Triple OD planned for 10/12/18)..hp EK follow up 4 weeks EK follo w up on left eye. Pt reports vision is blurry. It is consistent. It can be worse at night sometimes. No discomfort. Durezol qid OS @ tech PO The 58 year old male presents for 1 week s/p Triple w/ EK OS (06/01/17). Pt states vision is still blurry but he can tell a huge difference in clarity of things. Ocuflox QID OSDurezol QID OS PO The 58 year old male presents for 1 day s/p Triple w/ EK OS. Pt states vision is still pretty blurry. Durezol QID OSOcuflox QID OS Triple eval Triple Eval OU p er JF (Hold spot for sx at [place] on 06/01/18) - Pt states that he struggles to drive at night time due to glare and halos OU x 3-4 years. Pt struggles to read street signs and has to get closer in order to make them out. Pt also needs a lot of light in order to read small print OU. Pt denies headaches... cornea eval The 58 year old male presents for evaluation of cornea eval in the right eye and left eye. 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 Vision is blurred, like always looking through a fog. Worse in the morning and late in the evening. Was using Sodium Chloride 128 2x's day but have stopped using it because it was not helping. TECH RL Functional Status Date Functional Assessmen t No Information Instructions Date Instruction Additional Infor janusz Dr. Cheng for routine Related to Post Triple/EK Impression/Plan Related to Post Triple/EK 7 month Triple w/ EK check Relat ed to P/Triple w/ EK Impression/Plan Related to P/Tri ple w/ EK 1 month Triple w/EK ck /refract Related to P/Triple w/ EK Impression/Plan Related to P/Tri ple w/ EK 3-4 wks Triple with EK ck OD Rel ated to P/Triple w/ EK Impression/Plan Related to P/Tri ple w/ EK 1 wk Triple with EK po Related t o P/Triple w/ EK Impression/Plan Related to P/Tri ple w/ EK Triple w/EK OD surgery Related t o P/Triple w/ EK Impression/Plan Related to P/Tri ple w/ EK 4-6 wks Ek po/plan Triple w/EK O D Related to P/Triple w/ EK Impression/Plan Related to P/Tri ple w/ EK Impression/Plan 4 wk EK OS f/u- Related to P/Tri ple w/ EK Impression/Plan Related to P/Tri ple w/ EK 1 wk triple w/EK OS ck- Related to P/Triple w/ EK Impression/Plan Related to P/Tri ple w/ EK Impression/Plan Impression/Plan Assessments Type Assessment Date assessment Post Triple/EK impression Post Triple/EK: Z94.7. OU Patient Care Teams Name Effective Dates (start - stop) Status Members No Information
[2025-03-09 15:38] LABS: Anion Gap 15.9 mEq/L (5-15); Blood Urea Nitrogen 26 mg/dl (9-20); Calcium 9.3 mg/dl (8.4-10.2); Carbon Dioxide 24 mmol/L (22.0-30.0); Chloride 103 mmol/L (98-107); Creatinine,Serum 0.90 mg/dl (0.66-1.25); Estimated Glomerular Filt Rate 85 ml/min (>60); GFR (African American) 103 ML/MIN (>60); Glucose 93 mg/dl (74-100); Potassium 4.9 mmoL/L (3.5-5.1); Sodium 138 mmol/L (136-145)
--- OUTSIDE RECORDS SUMMARY | 2025-03-10 13:45 | XMS_ITS | Clinical Summary ---
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 Name Role Phone Eddie SANTANA, Tae Camara Unavailable [ ] Conditions or Problems Problem Name Problem Code Onset Date Status Entry Date Provider Comment Standard Description Annotate Hypoalbuminem ia 812603301 (SNOMED CT) 11/04 Active 11/04 Giana Noland Hypoalbuminemia Anemia in chronic diseases(docu ment disease) D63.8 (ICD-10-CM ) 11/04 Active 11/04 Giana Ludin Anemia in other chronic diseases classified elsewhere Thrombocytope marlon, 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 (ICD-10-CM ) 11/04 Active 11/04 Giana Ludin Other secondary thrombocytopenia Benign Essential Hypertension 3646562 (SNOMED CT) 11/04 Active 11/04 Gianabreana Noland Benign essential hypertension FUO 7187594 (SNOMED CT) 11/03 Active 11/03 Hedy W Pyrexia of unknown origin History of diverticuliti s 317353922 (SNOMED CT) 11/03 Active 11/03 Hedy W History of gastrointestinal bleed Medications Medication Instructions Start Date Stop Date Generic Name NDC Provider CEFTRIAXONE SODIUM 2 GM SOLR 2 gms IV q 24 hrs/OPAT CEFTRIAXONE SODIUM 04423981669 Shirlene Sorensen RN DAILY MULTIPLE VITAMINS TABS 1 Tab PO QD MULTIPLE VITAMIN 18009524532 Tae Morgan MD EQL VITAMIN D3 50 MCG (1999 UT) CAPS 1Tab PO QD CHOLECALCIFEROL 92226128645 Tea Morgan MD B COMPLEX 50 ORAL TABLET 1Tab PO QD B COMPLEX VITAMINS 09341081858 Tae Morgan MD YL VITAMIN C 1000 MG TABS 1 Tab PO QD ASCORBIC ACID 21041087164 Tae Morgan MD EQ PROBIOTIC CAPS 1 Tab PO QD PROBIOTIC PRODUCT 92971368497 Tae Morgan MD LIPITOR 10 MG TABS Take 5 mg QD ATORVASTATIN CALCIUM 78355800894 Tae Morgan MD ZYRTEC ALLERGY 10 MG TABS 1Tab QD CETIRIZINE HCL 63459811475 Tae Morgan MD SINGULAIR 10 MG TABS 1 Tab QD MONTELUKAST SODIUM 06446302100 Tae Morgan MD LOSARTAN POTASSIUM 100 MG TABS 1Tab QD [place]ARTAN POTASSIUM 73940581210 Tae Morgan MD CEFTRIAXONE SODIUM 2 GM SOLR 2 gms IV q 24 hrs/OPAT CEFTRIAXONE SODIUM 40216863992 Shirlene Sorensen RN Medications Administered No information available. Allergies, Adverse Reactions, Alerts Allergy Name Reaction Description Start Date Severity Statu s Provider IBUPROFEN Critical Active Chanelle Me duyen OCTREOTIDE ACETATE Critical Active Chanelle [place] Results Date Name Value Unit Range Flag Description Lab Report: CBC WITH AUTO DI FFERENTIAL IMMATUREGRAN 0.02 10*3/MM3 0.00-0.03 Immature granulocytes [#/volume] in Blood BASO# 0.05 10*3/mm3 0.00-0.20 Basophils [#/vol ume] in Blood EOS ABSLT 0.15 10*3/uL 0.00-0.30 Eosinophi ls [#/volume] in Blood MONOSCT AUTO 0.49 10*3/uL 0.00-1.00 Monocy rehana [#/volume] in Blood by Automated count LYMPHCT AUTO 1.41 10*3/mm3 0.60-4.80 Lymph ocytes [#/volume] in Blood by Automated count ABS NEUTROPH 5.44 10*3/uL 1.50-8.30 Neutro phils [#/volume] in Blood IMM GRANU % 0.3 % 0.0-0.6 Immature granulocytes/100 leukocytes in Blood ZZ-GE-unk 0.7 % 0.0-1.0 GE use only - for [employer]ic import when terms are not otherwise specified % EOS AUTO 2.0 % 0.0-3.0 Eosinophil s/100 leukocytes in Blood by Automated count MONOCYTE BF 6.5 % 0.0-12.0 monocyte s as percent of body fluid leukocytes LYMPHOCY BF 18.7 % 24.0-44.0 L lymphoc ytes as percent of body fluid leukocytes PMN % 72.1 % 41.0-71.0 H Neutrophils /100 leukocytes in Blood by Automated count PLATELETS 206 10*3/mm3 150-450 Platelets [#/volume] in Blood by Automated count RDW_ 14.2 11.3-14.5 RDW, no uni ts MCHC 34.5 G/DL 32.0-36.0 MCHC [Mass/ volume] by Automated count MCH 29.6 pg 27.0-31.0 MCH [Entiti c mass] by Automated count MCV 85.8 fL 80.0-99.0 MCV [Entiti c volume] by Automated count HCT 42.3 % 38.9-50.9 Hematocrit [Volume Fraction] of Blood by Automated count HGB 14.6 g/dL 13.1-17.5 Hemoglobin [Mass/volume] in Blood RBC 4.93 10*6/mm3 4.20-5.76 Erythrocyt es [#/volume] in Blood by Automated count WBC 7.54 10*3/mm3 3.50-10.8 0 Leukocytes [#/volume] in Blood by Automated count Lab Report: SEDIMENTATION RA TE ESR 13 mm/h 0-20 Erythrocyte sedimentation rate by Westergren method Lab Report: COMPREHENSIVE ME TABOLIC PANEL ANIONGAP 9.0 mmol/L 3.0-11.0 anion gap, serum BUN/CREAT 22.4 7.0-25.0 Urea nitrogen/Creatinine [Mass Ratio] in Serum or Plasma GFRC 93 mL/min/1. 73m2 >60 Glomerular Filtration Rate Calculation BILI TOTAL 0.5 mg/dL 0.3-1.2 Bilirubin. total [Mass/volume] in Serum or Plasma ALK PHOS 83 U/L 25-100 Alkaline catalina sphatase [Enzymatic activity/volume] in Blood SGOT (AST) 70 U/L 0-33 H Aspartate aminotransferase [Enzymatic activity/volume] in Serum or Plasma SGPT (ALT) 118 U/L 7-40 H Alanine aminotransferase [Enzymatic activity/volume] in Serum or Plasma ALBUMIN 4.53 g/dL 3.20-4.80 Albumin [Mass/volume] in Serum or Plasma PROTEIN, TOT 7.2 g/dL 5.7-8.2 Protein [Mass/volume] in Serum or Plasma CALCIUM 9.5 mg/dL 8.7-10.4 Calcium [Moles/volume] in Serum or Plasma CO2 26.0 mmol/L 20.0-31.0 Carbon diox ike, total [Moles/volume] in Venous blood CHLORIDE 107 mmol/L 99-109 Chloride [Moles/volume] in Serum or Plasma POTASSIUM 4.5 mmol/L 3.5-5.5 Potassium [Moles/volume] in Serum or Plasma SODIUM 142 mmol/L 132-146 Sodium [Moles/volume] in Serum or Plasma CREATININE 0.85 mg/dL 0.60-1.30 Creatini ne [Mass/volume] in Serum or Plasma BUN 19 mg/dL 9-23 Urea nitrogen [Mass/volume] in Serum or Plasma GLUCOSE SER 95 mg/dL 70-100 Glucose [Mass/volume] in Serum or Plasma Lab Report: C-REACTIVE PROTE IN CRP 0.12 mg/dL 0.00-1.00 C reactive protein [Mass/volume] in Serum or Plasma External Other: Patient port al update - EmailStatusjerricaington Inf ... PATPORTALPIN Linked This marvel l be used to establish a PIN number for patients to register in the Patient Portal. External Other: Patient lo reid update - Email jerrica Aguayoington Infe ... PAT E-MAIL charan [email or web address] patient's e-mail address Office Visit: room 1 MEDS REVIEW Done Documenta tion of current medications (procedure) ORALTOBACUSE Former Tobacco smoking status CIGARET SMKG yes Tobacco smoking status SMOK STATUS Former smoker Tobacco smoking status Plan of Care Type Date Detail Pending order Continue IV anti biotics Pending order Ceftriaxone Pending order Stat Weekly Labs Patient education Ceftriaxone%20 (Injection)%20(Injectable) Procedures Code Procedure Name Date Entry Date CPT-ca Continue IV antibiotics 2017 [id number] Ceftriaxone CPT- stat weekly Stat Weekly Labs Vital Signs Date Name Value Unit Description BMI (Body Mass Index) 29.44 kg/m2 Bod y Mass Index (Ratio) Body Temperature 98.0 [degF] temperat ure E&M BP Diastolic 78 mm[Hg] blood pressu re, diastolic BP Systolic 140 mm[Hg] blood pressur e, systolic Heart Rate 60 /min pulse rate Height 70 [in_us] height E&M Respiratory Rate 16 /min respirat ory rate E&M Weight Measured 205.2 [lb_av] weight E& M Weight Measured 205.2 [lb_av] weight E& M Immunizations No information available. Advance Directives Directive Description Start Date NO ADVANCED DIRECTIVES ESTABLISHED AT [place] S TIME
--- OUTSIDE RECORDS SUMMARY | 2025-03-10 13:46 | XMS_ITS | Referral Summary ---
Author Organization [employer] ([place], [place], [place], [place]) Address [address] [place] [address] Care Team Providers Care Stores Laborer Name Role Phone Matthew Gardner MD Primary Care Provider [phone] Allergies Active Allergy Reactions Criticality Noted Date Comments Ibuprofen 07/29/2022 Octreotide 07/29/2022 Xscmrsh-Eob-Nji Reductase Inhibitors 07/29/2022 Medications amLODIPine (NORVASC) 10 MG tablet Take 1 tablet (10 mg total) by mouth in the morning. 07/01/2022 Active Nexlizet 180-10 mg Tab Take 1 tablet by mouth in the morning. 09/10/2022 Active fluorometholone (FML) 0.1 % ophthalmic suspension 1 drop in the morning. 08/17/2022 Active rosuvastatin (CRESTOR) 20 MG tablet Take 1 tablet (20 mg total) by mouth nightly. 07/01/2022 Active aspirin 81 MG EC tablet aspirin 81 mg tablet,delay ed release TAKE ONE TABLET BY MOUTH EVERY DAY Active Active Problems Problem Noted Date Diagnosed Date Encounter for general adult medical examination without abnormal findings 07/29/2022 Environmental allergies 07/29/2022 Hyperlipidemia 08/27/2020 Hypertension 08/27/2020 Other specified postprocedural states 08/27/2020 Sinus bradycardia 08/27/2020 Chest pain 05/07/2020 Social History Tobacco Use Types Packs/Day Years Used Date Smoking Tobacco: Former Cigarettes Smokeless Tobacco: Never Tobacco Cessation:Counseling Given: Not Answered Family and Community Support Answer Khari e Recorded Help with Day to Day Activities Not on file 06/11/2023 Feeling Lonely or Isolated Not on file 06/11 Educational Attainment Answer Date Marcelo rded Speak language other than Afghan at home Not on file 06/11/2023 Want help with school or training Not on file 06/11/2023 Substance Use Answer Date Recorded Used prescription meds for non-medical reasons N ot on file 06/11/2023 Used illegal drugs past 12 months Not on file 06/11/2023 Sex and Gender Information Value Date Recorded Sex Assigned at Not on file Legal Sex Male 4:17 PM CDT Gender Identity Not on file Sexual Orientation Not on file Last Filed Vital Signs Vital Sign Reading Time Taken Comments Blood Pressure 140/100 09/18/2022 11:03 AM EDT Pulse 55 09/18/2022 11:03 AM EDT Temperature - - Respiratory Rate - - Oxygen Saturation - - Inhaled Oxygen Concentration - - Weight 87.4 kg (192 lb 9.6 oz) 09/18/2022 11:03 AM EDT Height 177.8 cm (5' 10 ) 09/18/2022 11:03 AM EDT Body Mass Index 27.64 09/18/2022 11:03 AM EDT Plan of Treatment Not on file Procedures Procedure Name Priority Date/Time Associated Diagnosis Comments LIPID PANEL Routine 05/08/2020 4:58 AM EST from Last 3 Months or Most Recently Relevant to Health Maintenance Results * (ABNORMAL) LIPID PANEL (05/08/2020 4:58 AM EST) Triglyceride 130 0 - 249 mg/dL 05/08/2020 10:10 AM EST Cholesterol HDL 45.0 mg/dL 0 10:10 AM EST Comment: Desirable > 60 mg/dl Increased Risk < 40 mg/dl Cholesterol Total 280(H) 0 - 199 mg/dL 05/08/2020 10:10 AM EST Comment: 200 to 239 mg/dL Moderate (borderline) >239 mg/dL High Cholesterol VLDL Calculation 26.0 5.0 - 40.0 mg/dL 05/08/2020 10:15 AM EST Comment:Calculated by Discer n Rule GL_CHEM_TRIG_CMNT Cholesterol LDL Calculation 209.0(H) 0.0 - 99.0 mg/dL 05/08/2020 10:15 AM EST Comment: Calculated by Discern Rule GL_CHEM_TRIG_CMNTDESIRABLE <130 BORDERLINE 130 to 159 HIGH >=160 Cholesterol/HDL Ratio 6.2(H) 0.0 - 3.2 05/08/2020 10:10 AM EST LDL/HDL Ratio 4.6(H) 0.0 - 3.6 05/08/2020 10:15 AM EST Comment:Calculated by Discer n Rule GL_CHEM_TRIG_CMNT Blood 05/08/2020 4:58 AM EST 05/08/2020 9:58 AM EST [facility] Historical Provider PATHOLOGY/CYTOLOGY ORDE RENETTA Final Result [facility] [address] [place], [place] [address] [phone] from Last 3 Months or Most Recently Relevant to Health Maintenance [place] [address] BLUE CROSS/BLUE SHIELD Care Teams Stores Laborer Relationship Specialty Start Date End Date Matthew Gardner MD [address] [place] [address] [place] [address] PCP - General General Internal Medicine 09/18/22
--- OUTSIDE RECORDS SUMMARY | 2025-03-10 13:47 | XMS_ITS | Clinical Summary ---
Author Organization [facility] Address [address] [place] [address] Care Team Providers Care Office Machines Teacher Name Role Phone Matthew Gardner MD Primary Care Provider [phone] Allergies Active Allergy Reactions Criticality Noted Date Comments Citalopram Other (See Comments) 03/28/2012 Ibuprofen Hives 05/11/2011 Octreotide Unknown - High Severity 07/29/2022 Statins Unknown - High Severity 07/29/2022 Medications ondansetron ODT (ZOFRAN-ODT) [address] 1 tablet on the tongue 4 (Four) Times a Day As Needed for Nausea or Vomiting. 12 tablet Active Social History Tobacco Use Types Packs/Day Years Used Date Smoking Tobacco: Never Assessed Abuse Screen Answer Date Recorded Unsafe at Home or Work/School Not on file Feels Threatened by Someone? Not on file 10/2023 Does Anyone Keep You from Co ntacting Others or Doint Things Outside the Home? Not on file 01/28/2024 Physical Sign of Abuse Present Not on file 0 01/28/2024 Housing Stability Answer Date Recorded Current Living Arrangements Not on file 01/2023 Potentially Unsafe Housing Conditions Not on mj e 03/01/2023 Family and Community Support Answer Khari e Recorded Help with Day-to-Day Activities Not on file 03/01/2023 Lonely or Isolated Not on file 03/01/2023 Employment Answer Date Recorded Do you want help finding or keeping work or a yulisa b? Not on file 03/01/2023 Disabilities Answer Date Recorded Concentrating, Remembering, or Making Decisions Difficulty Not on file 03/01/2023 Doing Errands Independently Difficulty Not on fi le 03/01/2023 Education Answer Date Recorded Help with school or training? Not on file Preferred Language Not on file 03/01/2023 Sex and Gender Information Value Date Recorded Sex Assigned at Not on file Legal Sex Male 12:21 PM EDT Gender Identity Not on file Sexual Orientation Not on file Last Filed Vital Signs Vital Sign Reading Time Taken Comments Blood Pressure 136/77 01/26/2023 2:00 AM EDT Pulse 64 01/26/2023 2:00 AM EDT Temperature 36.7 C (98.1 F) 01/25/2023 9:02 PM EDT Respiratory Rate 18 01/25/2023 9:02 PM EDT Oxygen Saturation 97% 01/26/2023 2:00 AM EDT Inhaled Oxygen Concentration - - Weight 83.9 kg (185 lb) 01/25/2023 9:02 PM EDT Height 177.8 cm (5' 10 ) 01/25/2023 9:02 PM EDT Body Mass Index 26.54 01/25/2023 9:02 PM EDT Plan of Treatment Health Maintenance Due Date Last Done Comments ANNUAL PHYSICAL 1960 HEPATITIS C SCREENING 1961 TDAP/TD VACCINES (1 - Tdap) 02/24/1980 COLOGUARD 2006 COLON CANCER SCREENING 5 YEAR SIGMOIDOSCOPY 2006 COLONOSCOPY [address]CER SCREENING [address] CT COLONOGRAPHY 2006 FECAL OCCULT BLOOD TEST 2006 FIT Testing (1 year) 2006 Pneumococcal Vaccine 50+ (1 of 1 - PCV) 2011 ZOSTER VACCINE (1 of 2) 2011 INFLUENZA VACCINE 12/22/2024 05/07/2021 [facility] Subscriber Plan / Payer (Ef fective 2017-Present) Name:Yonis Gardner Relation to Subscriber:Self Name:Yonis Gardner Payer ID:[id number] (NAIC) Type:Not on file Address: [facility] [id number] [place] [id number] Care Teams Office Machines Teacher Relationship Specialty Start Date End Date Matthew Gardner MD [address] [facility] [address] [facility] [place] [address] PCP - General Internal Medicine 11/08/17
--- OUTSIDE RECORDS SUMMARY | 2025-03-10 13:47 | XMS_ITS | Clinical Summary ---
Author Organization [employer] ([place], [place], [place], [place]) Address [address] [place] [address] Care Team Providers Care Bean Viner Name Role Phone Matthew Gardner MD Primary Care Provider [phone] Allergies Active Allergy Reactions Criticality Noted Date Comments Ibuprofen 07/29/2022 Octreotide 07/29/2022 Crwaqdw-Lrj-Aqs Reductase Inhibitors 07/29/2022 Medications amLODIPine (NORVASC) 10 [...] Date Marcelo rded Speak language other than Lebanese at home Not on file 06/11/2023 Want [...] 09/18/2022 11:03 AM EDT Plan of Treatment Health Maintenance Due Date Last Done Comments CT Colonography 1961 Colonoscopy 1961 Colorectal Cancer Screening 1961 FOBT/FIT 1961 Fit-DNA (Cologuard) 1961 Sigmoidoscopy 1961 Depression Screening (12+) 1973 HIV Screening 02/24/1976 Hepatitis C Screening 1979 DTAP/TDAP/TD VACCINES (1 - Tdap) 02/24/1980 Pneumococcal 50+ years (1 of 1 - PCV) 2011 Shingles Vaccine (Zoster) (1 of 2) 2011 Respiratory Syncytial Virus (RSV) Adult or (1 - Risk 60-74 years 1-dose series) 2021 Lipid Panel 05/08/2023 05/08/2020 Tobacco Cessation Counseling and Screening (12+) 09/19/2023 09/18/2022 COVID-19 VACCINE (3 - season) 2025, 08/03/2020 Influenza Vaccine (#1) 2025 05/07/2021 Procedures Procedure Name Priority Date/Time Associated Diagnosis [...] 4:58 AM EST 05/08/2020 9:58 AM EST [facility] Historical Provider PATHOLOGY/CYTOLOGY REBECCAE RENETTA Final Result [facility] [address] [place] [address], [facility] [phone] from Last 3 Months or Most Recently Relevant to [place] [address] BLUE CROSS/BLUE SHIELD Care Teams Bean Viner Relationship Specialty Start Date End Date Matthew Gardner MD [address] [place] [address] PCP - General General Internal Medicine 09/18/22
== END 2025-03-09 23:59 | disposition home or self-care (01) ==
LOC: LAB.DROPOF 03-10 13:39
PROVIDERS: PCP Internal Medicine; Visit Provider Internal Medicine
DX: E87.5 Hyperkalemia (principal); R89.9 Unspecified abnormal finding in specimens from other organs, systems and tissues
CPT/HCPCS: 80048

== ENCOUNTER 2025-03-22 09:53 | Outpatient (CLI) | payer BC, SELFPAY ==
--- OUTSIDE RECORDS SUMMARY | 2019-07-20 06:00 | XMS_ITS | Continuity of Care Document ---
Author Organization [facility] Address [address] [place] [id number] Phone Care Team Providers Care Wet Machine Tender Name Role Phone Filiberto OD, Ginette Unavailable [...] Date Provider Providers Copied on Encounter [facility] [place] [facility], [address] [place] [address], [id number], tel:[phone] [facility] (chief complaint) Post Triple/EK 0 De Los Santos Ginette. [address] [place] [address], [id number] , . tel:[phone] Referring Provider: [address], [place], [address] . tel:[phone] [facility] [place] [facility], [address] [place] [address], [id number], tel:[phone] KEVIN EscobedoOlivet KELSEA No Information 0 De Los Santos Ginette. [address] [place] [address], [id number] , . tel:[phone] [facility] [place] [facility], [address] [place] [address], [id number], tel:[phone] KEVIN DOE PO (chief complaint) P/Triple w/ EK 9 De Los Santos Ginette. [address] [place] [address], [address] [place] [address] , . tel:[phone] Referring Provider: [address], [place], [address] . tel:[phone] [facility] [place] [facility], [address] [place] [address], [address] [place] [address], tel:[phone] JasonCAROLINE Topete Jim NADER Post Op (chief complaint) P/Triple w/ EK 9 De Los Santos Ginette. [address] [place] [address], [address] [place] [address] , . tel:[phone] Referring Provider: [address], [place], [address] . tel:[phone] [facility] [place] [facility], [address] [place] [address], [id number], tel:[phone] JasonCAROLINE Topete Jim DOE Triple w/ EK check (chief complaint) P/Triple w/ EK 9 De Los Santos Ginette. [address] [place] [address], [address] [place] [address] , . [phone] Referring Provider: [address], [place], [address] . tel:[phone] [facility] [place] [facility], [address] [place] [address], [id number], tel:[phone] JasonCAROLINE Topete Jim NADER PO (chief complaint) P/Triple w/ EK 9 De Los Santos Ginette. [address] [place] [address], [id number] , . [phone] Referring Provider: [address], [place], [address] . tel:[phone] [employer] [facility] [employer] [facility], [address] [place] [address], [id number], tel:[phone] [facility] No Information 9 Beti Alston. [address] [place] [address], [address] [place] [address] , . tel:[phone] Referring Provider: [address], [place], [address] . tel:[phone] [employer] [facility] [place] [facility], [address] [place] [address], [address] [place] [address], tel:[phone] [employer] [place] No Information 9 Beti Alston. [address] [place] [address], [address] [place] [address]. tel:[phone] Referring Provider: Gamaliel Lemos, [address] [place] [address], [address] . tel:[phone] [employer] [facility] [employer] [facility], [address] [place] [address], [address] [place] [address], tel:[phone] [employer] [place] No Information 9 De Los Santos Ginette. [address] [place] [address], [address] [place] [address] , . tel:[phone] [employer] [facility] [place] [facility], [address] [place] [address], [address] [place] [address], tel:[phone] [employer] [place] Triple w/ EK (chief complaint) P/Triple w/ EK 9 De Los Santos Ginette. [address] [place] [address], [address] [place] [address] , . tel:[phone] Referring Provider: [address], [place], [address] . tel:[phone] [employer] [facility] [place] [facility], [address] [place] [address], [id number], tel:[phone] KEVIN DOE EK follow up (chief complaint) P/Triple w/ EKFuchs' dystrophyCataract, nuclear sclerosis, right eye 9 De Los Santos Ginette. [address] [place] [address], [address] [place] [address] , . tel:[phone] Referring Provider: [address], [place], [address] . tel:[phone] [facility], [address] [place] [address], [id number], tel:[phone] KEVIN DOE PO (chief complaint) P/Triple w/ EK 9 Piracha Gamaliel. [address] [place] [address], [address] [place] [address] , . tel:[phone] Referring Provider: [address], [place], [address] . tel:[phone] [facility], [address] [place] [address], [id number], tel:[phone] KEVIN DOE PO (chief complaint) P/Triple w/ EK 9 De Los Santos Ginette. [address] [place] [address], [id number] , . tel:[phone] Referring Provider: [address], [place], [address] . tel:[phone] [facility] [place] [facility], [address] [place] [address], [id number], tel:[phone] [facility] No Information 9 Piracha Gamaliel. [address] [place] [address], [address] [place] [address] , . tel:[phone] Referring Provider: [address], [place], [address] . tel:[phone] [facility] [place] [facility], [address] [place] [address], [id number], tel:[phone] KEVIN Topete [facility] Triple eval (chief complaint) Fuchs' dystrophyCombined cataract, bilateral 8 Piracha Gamaliel. [address] [place] [address], [address] [place] [address] , . [phone] Referring Provider: [address], [place], [address] . tel:[phone] [facility], [address] [place] [address], [address] [place] [address], tel:[phone] KEVIN Fernandez [place] No Information Piracha Gamaliel. [address] [place] [address], [address] [place] [address] , . [phone] Referring Provider: [address], [place], [address] . tel:[phone] [facility], [address] [place] [address], [address] [place] [address], tel:[phone] KEVIN Fernandez [place] cornea eval (chief complaint) Fuchs' dystrophyCombined cataract, bilateral 8 Filiberto Peng. [address] [place] [address], [id number] , . [phone] Referring Provider: [address], [place], [address] . tel:[phone] Family History Family Member Type Diagnosis Age At Onset Brother Problem (finding) Diabetes mellitus Immunizations Vaccine Date Status Comments Flu (split) (3 yrs or older) administered Source: Source Unspecified Pneumo (2 yrs or older)(PPV) administered Source: Source Unspecified Payers Payer name Insurance type Covered constitution party ID Authoriza tion(s) Ross Abernathy And FEP BL [id number] Social History Type Description Quantity Date Captured [...] er JF (Hold spot for sx at [place] on 06/01/18) - Pt states that he [...] D Related to P/Triple w/ EK Impression/Plan Impression/Plan Related to P/Tri ple w/ EK 4 wk EK OS f/u- Related to [...]
--- NOTE | 2025-03-22 10:15 | CT_ITS ---
FINAL REPORT TECHNIQUE: Axial images were obtained through the chest without contrast. Sagittal and coronal reconstruction was performed. This study was performed with techniques to keep radiation doses as low as reasonably achievable (ALARA). Individualized dose reduction techniques using automated exposure control or adjustment of mA and/or kV according to the patient's size were employed. CLINICAL HISTORY: Right lung nodule FINDINGS: There is no mediastinal mass or adenopathy. There are moderate coronary artery calcifications. The heart size is normal. There is no pericardial or pleural effusion. Limited images of the upper abdomen demonstrate a contracted gallbladder. No suspicious infiltrate or nodule identified. There is a calcified granuloma in the right lung base. IMPRESSION: Calcified granuloma in the right lung base. No acute pulmonary abnormality. Reviewed, Interpreted and Dictated by Mateus Rhoades MD Transcribed by Allie Montemayor Authenticated and [facility]
--- OUTSIDE RECORDS SUMMARY | 2025-03-22 10:19 | XMS_ITS | Clinical Summary ---
Author Organization [facility] Address [address] [place] [address] Phone Care Team Providers Care Lcac Radar Operator/Navigator Name Role Phone Eddie SANTANA, Tae Camara Unavailable [ ] Conditions or Problems Problem Name Problem Code Onset Date Status Entry Date Provider Comment Standard Description Annotate Hypoalbuminem ia 291915858 (SNOMED CT) 11/04 Active 11/04 Giana Noland Hypoalbuminemia Anemia in chronic diseases(docu ment disease) D63.8 (ICD-10-CM ) 11/04 Active 11/04 Giana Ludin Anemia in other chronic diseases classified elsewhere Thrombocytope marlon, 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 (ICD-10-CM ) 11/04 Active 11/04 Giana Ludin Other secondary thrombocytopenia Benign Essential Hypertension 9781367 (SNOMED CT) 11/04 Active 11/04 Gianabreana Noland Benign essential hypertension FUO 0944435 (SNOMED CT) 11/03 Active 11/03 Hedy W Pyrexia of unknown origin History of diverticuliti s 509262566 (SNOMED CT) 11/03 Active 11/03 Hedy W History of gastrointestinal bleed Medications Medication Instructions Start Date Stop Date Generic Name NDC Provider CEFTRIAXONE SODIUM 2 GM SOLR 2 gms IV q 24 hrs/OPAT CEFTRIAXONE SODIUM 27620510084 Shirlene Sorensen RN DAILY MULTIPLE VITAMINS TABS 1 Tab PO QD MULTIPLE VITAMIN 85970164917 Tae Morgan MD EQL VITAMIN D3 50 MCG (1999 UT) CAPS 1Tab PO QD CHOLECALCIFEROL 50078421910 Tae Morgan MD B COMPLEX 50 ORAL TABLET 1Tab PO QD B COMPLEX VITAMINS 82470608859 Tae Morgan MD YL VITAMIN C 1000 MG TABS 1 Tab PO QD ASCORBIC ACID 68657408150 Tae Morgan MD EQ PROBIOTIC CAPS 1 Tab PO QD PROBIOTIC PRODUCT 99626707035 Tae Morgan MD LIPITOR 10 MG TABS Take 5 mg QD ATORVASTATIN CALCIUM 78962815832 Tae Morgan MD ZYRTEC ALLERGY 10 MG TABS 1Tab QD CETIRIZINE HCL 28143748234 Tae Morgan MD SINGULAIR 10 MG TABS 1 Tab QD MONTELUKAST SODIUM 94058565035 Tae Morgan MD LOSARTAN POTASSIUM 100 MG TABS 1Tab QD [place]AN POTASSIUM 38533463953 Tae Morgan MD CEFTRIAXONE SODIUM 2 GM SOLR 2 gms IV q 24 hrs/OPAT CEFTRIAXONE SODIUM 75914744250 Shirlene Sorensen RN Medications Administered No information available. Allergies, Adverse Reactions, Alerts Allergy Name Reaction Description Start Date Severity Statu s Provider IBUPROFEN Critical Active Chanelle Me duyen OCTREOTIDE ACETATE Critical Active Chanelle [place] Results Date Name Value Unit Range Flag [...] Start Date NO ADVANCED DIRECTIVES ESTABLISHED AT [place] S TIME
--- OUTSIDE RECORDS SUMMARY | 2025-03-22 10:20 | XMS_ITS | Referral Summary ---
Author Organization [employer] ([place], [place], [place], [place]) Address [address] [place] [address] Care Team Providers Care Extended Insurance Clerk Name Role Phone Matthew Gardner MD Primary Care Provider [phone] Allergies Active Allergy Reactions Criticality Noted Date Comments Ibuprofen 07/29/2022 Octreotide 07/29/2022 Wbluhad-Evh-Qdp Reductase Inhibitors 07/29/2022 Medications amLODIPine (NORVASC) 10 [...] Date Marcelo rded Speak language other than Nigerian at home Not on file 06/11/2023 Want [...] 4:58 AM EST 05/08/2020 9:58 AM EST [facility] Historical Provider PATHOLOGY/CYTOLOGY ORDE RENETTA Final Result [facility] [address] [place], [place] [address] [phone] from Last 3 Months or Most Recently Relevant to Health [place] [address] BLUE CROSS/BLUE SHIELD Care Teams Extended Insurance Clerk Relationship Specialty Start Date End Date Matthew Gardner MD [address] [place] [address] PCP - General General Internal Medicine 09/18/22
--- OUTSIDE RECORDS SUMMARY | 2025-03-22 10:20 | XMS_ITS ---
Author Organization Unknown ENCOUNTERS Encounter Performer Location Date Diagnosis Diagnosis Status Emergency Eduardo Moore [place] [place] [address] [id number] ANA LAURA Pre Admit Simran Gong [place] [address] [place] [address] [id number] *Note: Encounters from your own facility or health system may be excluded. Allergies, Adverse Reactions, Alerts Allergen Type Severity Identification Date octreotide drug allergy 20240328 ibuprofen drug allergy 20240328 Medications Name Date Quantity Days Supplied GPI Number
--- OUTSIDE RECORDS SUMMARY | 2025-03-22 10:20 | XMS_ITS | Continuity of Care Document ---
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 Plan of Treatment Reminders Order Date Submit Date Provider Last Modified By Organization Details Last Modified Time Details Appointments NEW PATIENT UROLOGY 2024 01:45P M DELMIS TRONCOSO MD Not available Not available Not available FOLLOW UP DAK 2025 01:40P M DR. CALVILLO Not available Not available Not available RECHECK 2025 08:00A M TERESITA AGUIRRE MD Not available Not available Not available Lab None recorded . Referral None recorded . Procedures None recorded . Surgeries None recorded . Imaging None recorded . Medication Orders None recorded . Patient TargetsNo targets recorded. Patient Instructions Encounter Date Encounter Id Patient Instructions Last Modified By Organization Details Last Modified Time 02/06/2025 [id number] 1. Right cerumenectomy performed in office today. Full risks, complications, and benefits of non-operative intervention have been thoroughly discussed. Understanding was expressed, informed consent given, and we will proceed with the discussed treatment plan. There were no questions for me at the end of the office visit. 2. F/u in 12 months Not available 02/06/2025 08:28:54 His right ear tu be has been in place over 6 years and was occluded with cerumen. Careful cerumenectomy was performed under the operating microscope. The tube is now in good position and functioning well. Routine follow-up will be scheduled in 12 months. [email or web address] Not available 02/06/2025 08:31:30 Reason for Referral None Reported. Problems No Known Problems Procedures Surgical History Date Name Laterality Status Provider Name and Address Organization Details Recorded Time 02/07/20 25 Cerumen removal - Instruments, Unilateral completed Miriam Hernandez [facility] 02/06/2025 08:27:17 01/03/20 24 Cerumen removal - Instruments, Unilateral completed JUSTINE DING, SCALE TECHNICIAN [address] [place], [address], [facility] 01/03/2024 10:38:42 04/09/20 20 Cerumen removal - Instruments, Unilateral completed Sonu Flor [facility] 04/09/2020 15:45:32 03/07/20 19 Binocular Microscopy completed Ekaterina Castro [facility] 03/07/2019 15:12:35 05/24/19 18 Corneal transplant completed [facility] 03/07/2019 14:51:44 05/13/20 16 Cerumen removal - Instruments, Unilateral completed Naina Cordovason [facility] 05/13/2016 09:17:22 Repair of nasal septum completed Naina Ángel [facility] 05/13/2016 08:54:56 Appendectomy completed Naina Cordovason [facility] 05/13/2016 09:11:50 Imaging Results None recorded. Procedure Notes None recorded. Medical Equipment None Reported. Allergies Allergen ID Allergen Name Allergen Category Reaction Reaction Severity Criticality Documentation Date Start Date Code Code System Note Provider Name and Address Organization Details Recorded Time 068261 Celexa medicatio n Not available Not available Not available 04/17/20162011 65776 8 RxNorm Comme nt: Creat ed By: Altagracia Gonzalez ed Date: 2011 2:36: 39 PM; Not Available [facility] 6 05:03:56 [id number] ibuprofen medicatio n Not available Not available Not available 04/17/20162010 5640 RxNorm Comme nt: Creat ed By: Altagracia Schaferat ed Date: 05/11 10:13 :08 AM; Not Available [facility] 6 09:53:07 549139 octreotid e Not available Not available Not available Not available 02/06/2025 7617 RxNorm Kathi Martinez [facility] 5 08:07:44 Medications Name Sig Start Date Stop Date Status Note LastModified by Organization Details LastModified Time losartan 50 mg tablet TAKE ONE TABLET BY MOUTH EVERY DAY 03/10 completed Not Available Not Available Not Available Hydromet 5 mg-1.5 mg/5 mL oral solution 03/07 completed Not Available Not Available Not Available amoxicill in 500 mg capsule TAKE TWO CAPSULES BY MOUTH TWICE DAILY -- FINISH ALL MEDICINE -- 02/05 completed Not Available Not Available Not Available prednison e 10 mg tablet take 4 tablets by mouth once daily in the morning for 5 days, then take 3 tablets each morning for 2 days, then take 2 tablets each morning for 2 days, then take 1 tablet each morning for 2 days, then stop --take with food-- 02/05 completed Not Available Not Available Not Available Multiple Vitamin capsule Daily active Duration : 30 days;Priyank quency: daily;Me dication Descript ion: multivit javier; Dosage:1 ; Route:or al; refills: 3; Quantity :100 capsule Not Available Not Available Not Available cetirizin e 10 mg tablet TAKE ONE TABLET BY MOUTH EVERY DAY 03/10 completed Not Available Not Available Not Available tizanidin e 4 mg tablet TAKE ONE TABLET BY MOUTH THREE TIMES DAILY NEEDED MAY CAUSE DROWSINE 03/10 completed Not Available Not Available Not Available benzonata te 200 mg capsule TAKE ONE CAPSULE BY MOUTH EVERY 8 HOURS NEEDED FOR cough -SWALLOW WHOLE. DO NOT CRUSH OR CHEW- 02/05 completed Not Available Not Available Not Available hydrocodo ne 5 mg-acetam inophen 325 mg tablet TAKE 1 TO 2 TABLET(S ) BY MOUTH EVERY 6 HOURS NEEDED FOR PAIN MAY CAUSE DROWSINE 07/22 completed Not Available Not Available Not Available aspirin 81 mg tablet,de layed release TAKE ONE TABLET BY MOUTH EVERY DAY active Not Available Not Available No t Available triamcino lone acetonide 0.1 % topical cream APPLY TOPICALL Y TO THE AFFECTED AREA(S) TWICE DAILY active Not Available Not Available No t Available spironola ctone 25 mg tablet TAKE ONE TABLET BY MOUTH EVERY DAY IN THE EVENING 07/22 completed Not Available Not Available Not Available amlodipin e 10 mg tablet TAKE ONE TABLET BY MOUTH EVERY DAY active Not Available Not Available No t Available fluoromet holone 0.1 % eye drops,pedro pension INSTILL 1 DROP INTO EACH EYE ONCE DAILY active Not Available Not Available No t Available nitroglyc adarsh 0.4 mg sublingua l tablet DISSOLVE 1 TABLET UNDER THE TONGUE EVERY 5 MINUTES NEEDED FOR CHEST PAIN. DO NOT EXCEED A TOTAL OF 3 DOSES IN 15 MINUTES. IF NO RELIEF AF 03/10 completed Not Available Not Available Not Available monteluka st 10 mg tablet Daily 03/10 completed Not Available Not Available Not Available methylpre dnisolone 4 mg tablets in a dose pack TAKE ACCORDIN G TO PACKAGE INSTRUCT IONS --TAKE WITH FOOD-- -- FINISH ALL MEDICINE -- 02/05 completed Not Available Not Available Not Available ondansetr on 4 mg disintegr ating tablet DISSOLVE ONE TABLET ON THE TONGUE FOUR TIMES DAILY NEEDED FOR NAUSEA AND VOMITING 02/05 completed Not Available Not Available Not Available cefdinir 300 mg capsule TAKE ONE CAPSULE BY MOUTH EVERY TWELVE HOURS FOR 10 DAYS -- FINISH ALL MEDICINE -- 01/25 completed no longer taking Not Available Not Available Not Available losartan 100 mg tablet TAKE ONE TABLET BY MOUTH EVERY DAY 03/10 completed Not Available Not Available Not Available amoxicill in 875 mg-potass ium clavulana te 125 mg tablet TAKE ONE TABLET BY MOUTH TWICE DAILY FOR 7 DAYS -- FINISH ALL MEDICINE -- 01/25 completed no longer taking Not Available Not Available Not Available Mucinex 600 mg tablet, extended release 03/07 completed Medicati on Descript ion: guaifene sin; Route:or al; refills: 0 Not Available Not Available Not Available ciproflox acin 0.3 %-dexamet hasone 0.1 % ear drops,pedro pension instill 4 drops into right ear TWICE DAILY FOR 7 DAYS NEEDED --SHAKE WELL BEFORE USE-- active Not Available Not Available No t Available rosuvasta tin 20 mg tablet TAKE ONE TABLET BY MOUTH DAILY active Not Available Not Available No t Available Crestor 10 mg tablet Daily 03/07 completed Frequenc y: daily;Me dication Descript ion: rosuvast atin; Dosage:1 ; Route:or al; refills: 5; Quantity :30 tablet Not Available Not Available Not Available Vitamin C active Not Available Not Tammy ilable Not Available magnesium sulfate 03/07 completed Medicati on Descript ion: magnesiu m sulfate; refills: 0; Quantity :1 Not Available Not Available Not Available vitamin B complex active Not Available Not Available Not Available omeprazol e 03/07 completed Medicati on Descript ion: omeprazo le; refills: 0 Not Available Not Available Not Available Vitamin D3 active Medicati on Descript ion: cholecal ciferol; Route:or al; refills: 0 Not Available Not Available Not Available Zyrtec 04/09 completed Not Available Not Available Not Available Durezol 0.05 % eye drops 03/07 completed Not Available Not Available Not Available Dulera 100 mcg-5 mcg/actua tion HFA aerosol inhaler 03/07 completed Medicati on Descript ion: formoter ol-momet asone; Route:in halation ; refills: 0 Not Available Not Available Not Available sodium,po tassium,m ag sulfates 17.5 gram-3.13 gram-1.6 gram oral soln TAKE BY MOUTH DIRECTED PER YOUR PHYSICIA N'S INSTRUCT IONS 02/05 completed Not Available Not Available Not Available Ma[facility]Safe [facility] 1.5 billion cell capsule 03/10 completed Medicati on Descript ion: bifidoba cterium- lactobac illus; Route:or al; refills: 0 Not Available Not Available Not Available Dymista 137 mcg-50 mcg/spray nasal spray 03/07 completed Medicati on Descript ion: azelasti ne-fluti casone nasal; Route:na bruno; refills: 0 Not Available Not Available Not Available Otovel 0.3 %-0.025 % (0.25 mL) ear solution INSTILL ONE VIAL IN RIGHT EAR TWICE DAILY FOR 7 DAYS 04/09 completed Not Available Not Available Not Available Nexlizet 180 mg-10 mg tablet TAKE ONE TABLET BY MOUTH DAILY active Not Available Not Available No t Available Flucelvax Quad (PF) 60 mcg (15 mcg x 4)/0.5 mL IM syringe Inject 0.5 ML INTRAMUS CULARLY DIRECTED 03/10 completed Not Available Not Available Not Available Vitals Date Recorded Body weight Body mass index (BMI) Body height Body temperature Heart rate Systolic And Diastolic Provider Name and Address Organization Details Last Updated DateTime 5 76666.3 6 g 27.2 kg/m2 177.8 cm 97.7 [degF] 55 /min 147/77 mm[Hg] Kathi Martinez [facility] 5 08:11:08 Social History Question Answer Notes LastModified by Organizat ion Details LastModified Time Tobacco Smoking Status [facility] 09:03:31 Sunscreen Use? Yes [email or web address] Informatio n not available 06/30/2024 Tanning Bed Use No [email or web address] Informati on not available 06/30/2024 What Was The Date Of Your Most Recent Tobacco Screening? 02/06/2025 [email or web address] Information not available 02/06/2025 Has Tobacco Cessation Counseling Been Provided? No Information not available 03/10/2021 Have You Recently Traveled Abroad? No Information not available 03/10/2021 Sex: Male Functional Status Question Answer Note LastModified by Organizat ion Details LastModified Time Do you use any illicit or recreational drugs? No [email or web address] Information not available 03/10/2021 Do you or have you ever used any other forms of tobacco or nicotine? No [email or web address] Information not available 03/10/2021 What is your level of alcohol consumption? None [email or web address] Information not available 03/10/2021 Mental Status None recorded. Family History Relationship Description Onset Age of this Age Resolved Age Notes LastModified by Organization Details LastModified Time Unspecified Relation Family history of malignant neoplasm [email or web address] Not available 2015 09:02:17 Unspecified Relation Family history of diabetes mellitus [email or web address] Not available 2015 09:02:28 Unspecified Relation Family history of Cardiovascul ar disease [email or web address] Not available 05/13 09:02:41 Unspecified Relation Family history of Hypertension [email or web address] Not available 09:02:59 Unspecified Relation Family history of stroke [email or web address] Not available 2015 09:03:22 Medical History Condition Response Kidney Stones N Enlarged Prostate N Hyperthyroidism N Heart Arrhythmia N Emphysema N Esophagus/swallowing troubles Y Lung cancer N Glaucoma N Depression N Hypothyroidism N Lung Disease N Anesthesia Complications N Hemophilia N Deep Vein Thrombosis N Anxiety Disorder N Arthritis Y Hearing Loss Y Throat cancer N Acid Reflux (GERD) Y Cancer N Stroke N Hoarseness N Alcohol Overuse/Alcohol Abuse N High Cholesterol Y Snoring problems N Liver Disease N Headaches N Kidney Disease N Allergies/Hayfever Y Heart Problems N Mental handicap N Ear or Hearing Problems Y Gallbladder Disease N Migraines Y Thyroid Problems N Goiter N Anemia N Immune System Disorder N Chest Pain N Stomach trouble N Ulcers N Heart Attack (AL) N Diabetes N Rheumatic Fever N Bleeding Disorder N Tuberculosis N AIDS/HIV N Kidney Failure N Hyperlipidemia Y Asthma N Epilepsy/Seizures N Sleep Disorder N Hepatitis N Heart Disease N Hypertension Y Immunizations Vaccine Type Date Status Note Provider Nam e and Address Organization Details Recorded Time COVID-19 vaccine, vector-nr, rS-Ad26, PF, 0.5 mL 08/03/2020 completed Not Available [facility] 5 08:02:19 Influenza, MDCK, quadrivalent, PF 05/07/2021 completed Not Available [facility] 5 08:02:19 COVID-19 vaccine, vector-nr, rS-Ad26, PF, 0.5 mL 06/13/2021 completed Not Available [facility] 5 08:02:19 Tdap 04/10/2024 completed Not Available [facility] 02/06/2025 08:02:19 Past Encounters Encounter ID Performer Location Encounter Start Date Encounter Closed Date Diagnosis/Indication Diagnosis SNOMED-CT Code Diagnosis ICD10 Code Diagnosis IMO Codes Diagnosis Note [id number] MD [facility] [address] [place] [address] 02/06/2025 07:59:13 02/06/2025 08:30:31 Dysfunction of right eustachian tube 4977077789 097504 H69.91 Retained right T-Tube (placed September 2014)- Right T-tube present Impacted c erumen in right ear 9302527259 301893 H61.21 Granulatio ns on tympanic membrane 696399663 H73.891 - 01/03/24: right TM surroundin g tube Health Concerns Section Related Observation LastModified by Organization Detai ls LastModified Time None Recorded Concern Status LastModified by Organization Details LastModified Time None Recorded Payers Encounter Date Sequence Insurance Name Policy Number Policy [place] Covered Member ID [place] Member ID Guarantor Name 02/06/2025 1 TARYN-NADER (PPO) [id number] 1 Virginia Gardner [id number] Yonis Gardner Notes Date Note Type Note Provider Name and Address Organization Details Recorded Time 02/06/2025 text/html ROS as noted in the HPI Yonis visits us in office today to follow up on right ear tube and eustachian tube dysfunction. Yonis reports no issues with his ears today. He did feel some discomfort around 1 month ago from his right ear but the discomfort went away soon after. TERESITA AGUIRRE MD [address] [place], [address], [facility] 02/06/2025 08:31:42
--- OUTSIDE RECORDS SUMMARY | 2025-03-22 10:20 | XMS_ITS | Data Portability ---
Author Organization [facility] Busy Catracho sanchez, VANIS COMBS CLOSED Address [address] [place] [address] Care Team Providers Care Swimmer Name Role Phone FRANCY VINSON Primary Care Provider TERESITA PEREZ Rail Manager Assessment No assessment recorded. Plan of Treatment Reminders Order Date Submit Date Provider Last Modified By Organization Details Last Modified Time Details Appointments NEW PATIENT UROLOGY 2024 01:45P M DELMIS TRONCOSO MD Not available Not available Not available FOLLOW UP DAK 2025 01:40P M DR. CALVILLO Not available Not available Not available RECHECK 2025 08:00A M TERESITA PEREZ MD Not available Not available Not available Lab None recorded . Referral None recorded . Procedures None recorded . Surgeries None recorded . Imaging None recorded . Medication Orders None recorded . Patient TargetsNo targets recorded. Patient Instructions Encounter Date Encounter Id Patient Instructions Last Modified By Organization Details Last Modified Time 07/28/2023 [id number] 1. Use antibioti c ear drops in the right ear as needed 2. F/u in 12 months [email or web address] Not available 07/28/2023 08:54:35 He is right ear tube is still in place and functioning well and he is currently asymptomatic. He had 2 episodes of otitis media last year that he treated with topical Ciprodex. The tube has now been in place 6 years. I will see him once a year but he will return sooner if he becomes symptomatic. [email or web address] Not available 07/28/2023 08:58:01 01/03/2024 [id number] 1. Right cerumenectomy performed under microscopy 2. Maintain dry right ear precautions 3. Ciprodex drops, 5 drops right ear BID for 7 days 4. F/U in [address] Perez to ensure right ear infection resolves and tube remains patent. [place] [facility] MD Jaycob Perez [email or web address] Not available 01/03/2024 10:39:53 01/26/2024 [id number] 1. Follow up in 12 mo. [email or web address] Not available 01/26/2024 15:27:59 He has recent episode of otitis media has resolved and his right ear tube is still in good position and functioning well. It has been in over 6 years now and may eventually need to be replaced. We talked about that today. I will see him yearly but he will return sooner if necessary. marissa Not available 01/26/2024 15:28:45 02/06/2025 [id number] 1. Right cerumenectomy performed in office today. Full risks, complications, and benefits of non-operative intervention have been thoroughly discussed. Understanding was expressed, informed consent given, and we will proceed with the discussed treatment plan. There were no questions for me at the end of the office visit. 2. F/u in 12 months [email or web address] Not available 02/06/2025 08:28:54 His right ear tu be has been in place over 6 years and was occluded with cerumen. Careful cerumenectomy was performed under the operating microscope. The tube is now in good position and functioning well. Routine follow-up will be scheduled in 12 months. marissa Not available 02/06/2025 08:31:30 Reason for Referral None Reported. Problems No Known Problems Procedures Surgical History Date Name Laterality Status Provider Name and Address Organization Details Recorded Time 02/07/20 25 Cerumen removal - Instruments, Unilateral completed Miriam Hernandez [facility] 02/06/2025 08:27:17 01/03/20 24 Cerumen removal - Instruments, Unilateral completed JUSTINE DING, TESTING AND REGULATING TECHNICIAN [address] [facility] [facility], [place], [address], [facility] 01/03/2024 10:38:42 04/09/20 20 Cerumen removal - Instruments, Unilateral completed Sonu Flor [facility] 04/09/2020 15:45:32 03/07/20 19 Binocular Microscopy completed Ekaterina Castro [facility] 03/07/2019 15:12:35 05/24/19 18 Corneal transplant completed Malorie Leong [facility] 03/07/2019 14:51:44 05/13/20 16 Cerumen removal - Instruments, Unilateral completed Naina Neal [facility] 05/13/2016 09:17:22 Repair of nasal septum completed Naina Neal [facility] 05/13/2016 08:54:56 Appendectomy completed Naina Neal [facility] 05/13/2016 09:11:50 Imaging Results None recorded. Procedure Notes None recorded. Medical Equipment None Reported. Allergies Allergen ID Allergen Name Allergen Category Reaction Reaction Severity Criticality Documentation Date Start Date Code Code System Note Provider Name and Address Organization Details Recorded Time 567191 Celexa medicatio n Not available Not available Not available 04/17/20162011 26035 8 RxNorm Comme nt: Creat ed By: Altagracia Johns; Creat ed Date: 2011 2:36: 39 PM; Not Available [facility] 6 05:03:56 [id number] ibuprofen medicatio n Not available Not available Not available 04/17/20162010 5640 RxNorm Comme nt: Creat ed By: Altagracia Johns; Creat ed Date: 05/11 10:13 :08 AM; Not Available [facility] 6 09:53:07 [id number] [email or web address] e Not available Not available Not available Not available 02/06/2025 7617 RxNorm Kathi argueta [facility] 08:07:44 Medications Name Sig Start Date Stop [...] THREE TIMES DAILY NEEDED MAY CAUSE DROWSINE SS 03/10 completed Not Available Not Available Not [...] HOURS NEEDED FOR PAIN MAY CAUSE DROWSINE SS 07/22 completed Not Available Not Available Not [...] tablets in a dose pack TAKE ACCORDIN Neena TO PACKAGE INSTRUCT IONS --TAKE WITH FOOD-- [...] completed Not Available Not Available Not Available Skycure 1.5 billion cell capsule 03/10 completed Medicati [...] Available Not Available Vitals Date Recorded Body height Body mass index (BMI) Body weight Body temperature Heart rate Systolic And Diastolic Provider Name and Address Organization Details Last Updated DateTime 4 177.8 cm 27.6 kg/m2 47559.5 4 g 97.3 [degF] 58 /min 136/80 mm[Hg] [facility] 4 08:34:56 Date Recorded Body height Body mass index (BMI) Body weight Body temperature Provider Name and Address Organization Details Last Updated DateTime 01/03/2024 177.8 cm 26.9 kg/m2 04945.93 g 98.6 [degF] Kizzy Mathews [facility] 01/03/2024 10:00:03 Date Recorded Body height Body mass index (BMI) Body weight Body temperature Heart rate Systolic And Diastolic Provider Name and Address Organization Details Last Updated DateTime 4 177.8 cm 27.4 kg/m2 20165.5 4 g 98.4 [degF] 58 /min 123/68 mm[Hg] Eunice Russell [facility] 4 15:10:04 Date Recorded Body weight Body mass index (BMI) Body height Body temperature Heart rate Systolic And Diastolic Provider Name and Address Organization Details Last Updated DateTime 5 95199.3 6 g 27.2 kg/m2 177.8 cm 97.7 [degF] 55 /min 147/77 mm[Hg] Kathi Martinez [facility] 5 08:11:08 Social History Question Answer Notes LastModified by Marfeel Details LastModified Time Tobacco Smoking Status [facility]2016 09:03:31 Sunscreen Use? Yes [email or web address] Informatio n not available 06/30/2024 Tanning Bed Use No [email or web address] Informati on not available 06/30/2024 What Was The Date Of Your Most Recent Tobacco Screening? 02/06/2025 [email or web address] Information not available 02/06/2025 Has Tobacco Cessation Counseling Been Provided? No [email or web address] Information not available 03/10/2021 Have You Recently Traveled Abroad? No [email or web address] Information not available 03/10/2021 Sex: Male Functional Status Question Answer Note LastModified by Marfeel Details LastModified Time Do you use any illicit or recreational drugs? No [email or web address] Information not available 03/10/2021 Do you or have you ever used any other forms of tobacco or nicotine? No [email or web address] Information not available 03/10/2021 What is your level of alcohol consumption? None [email or web address] Information not available 03/10/2021 Mental Status None [...] Medical History Condition Response Kidney Stones N Hyperthyroidism N Enlarged Prostate N Heart Arrhythmia N Emphysema N Esophagus/swallowing troubles Y Lung cancer N Depression N Lung Disease N Hypothyroidism N Glaucoma N Anesthesia Complications N Hemophilia N Deep [...] Stomach trouble N Ulcers N Heart Attack ([place]) N Diabetes N Rheumatic Fever N Bleeding Disorder N Tuberculosis N AIDS/HIV N Kidney Failure N Hyperlipidemia Y Asthma N Epilepsy/Seizures N Sleep Disorder N Hepatitis N Heart Disease N Hypertension Y Immunizations Vaccine Type Date Status Note Provider Nam e and Address Organization Details Recorded Time COVID-19 vaccine, vector-nr, rS-Ad26, PF, 0.5 mL 08/03/2020 completed Not Available [facility] 5 08:02:19 Influenza, MDCK, quadrivalent, PF 05/07/2021 completed Not Available [facility] 5 08:02:19 COVID-19 vaccine, vector-nr, rS-Ad26, PF, 0.5 mL 06/13/2021 completed Not Available [facility] 5 08:02:19 Tdap 04/10/2024 completed Not Available [facility] 02/06/2025 08:02:19 Past Encounters Encounter ID Performer Location Encounter Start Date Encounter Closed Date Diagnosis/Indication Diagnosis SNOMED-CT Code Diagnosis ICD10 Code Diagnosis IMO Codes Diagnosis Note [id number] TERESITA PEREZ MD [place] [facility] [address] [place] [address] 05/13/2016 08:35:08 05/13/2016 09:43:47 Dysfunction of eustachian tube 45701926 H69.91 Impacted cerumen 6370824 6 H61.21 [id number] TERESITA PEREZ MD [facility] [address] [place] [address] 03/07/2019 14:44:06 03/09/2019 10:06:54 Dysfunction of eustachian tube 04360330 H69.91 retained right t-tube; occluded-c leaned in office; 03/07/2019 Serous daryl tis media of right ear 3174765893 547002 H65.91 Impacted c erumen in right ear 4432503966 918766 H61.21 Purulent d rainage from external ear canal 37888074 H92.11 Granulation of tissue 22 5006376 R23.8 [id number] JUSTINE DING APRN [place] [facility] CL[facility] [address] [facility] [place] [address] 03/21/2019 07:56:01 03/24/2019 11:54:14 Dysfunction of eustachian tube 18431015 H69.91 - right - RMT placed 2014 Serous daryl tis media of right ear 7744804943 476970 H65.91 - resolved Granulation of tissue 22 4044446 R23.8 - resolved Purulent d rainage from external ear canal 30827086 H92.11 - resolved [id number] MD [facility]ER J[facility] [address] [place] [address] 04/09/2020 14:44:47 04/09/2020 15:49:43 Dysfunction of eustachian tube 21732254 H69.91 - Status post right myringotom y (t-tube) placement - 10/02/2014 Serous daryl tis media of right ear 6989604708 954557 H65.91 - Mild - 04/09/2020 Granulation of tissue 22 7899297 R23.8 - Resolved - Noted on the base of his right myringotom y tube - 04/09/2020 Purulent d rainage from external ear canal 58436095 H92.11 - Debrided in office today; Ciprodex prescribed - 04/09/2020 [id number] MD NADER JONES [facility] [address] [place] [address] 03/10/2021 14:54:52 03/10/2021 16:41:30 Dysfunction of eustachian tube 07413263 H69.91 - Status post right myringotom y (t-tube) placement - 10/02/2014 - right tube is dry and intact Granulation of tissue 22 7758218 R23.8 - Resolved - Noted on the base of his right myringotom y tube - 04/09/2020 [id number] MD [facility] [address] [facility] [place] [address] 07/22/2022 09:59:39 07/22/2022 10:56:22 Dysfunction of right eustachian tube 8205222563 518495 H69.91 Retained right T-Tube (placed September 2014) [id number] MD [facility]ER JONES [facility] [address] [facility] [place] [address] 07/28/2023 08:18:14 07/28/2023 12:06:50 Dysfunction of right eustachian tube 2899044683 912302 H69.91 Retained right T-Tube (placed September 2014) [id number] ROSA MARCUS [facility] [address] [place] [address] 01/03/2024 09:45:58 01/03/2024 10:51:41 Dysfunction of right eustachian tube 6641972398 743710 H69.91 Retained right T-Tube (placed September 2014) Impacted c erumen in right ear 9611285937 641968 H61.21 Granulatio ns on tympanic membrane 313597164 H73.891 - 01/03/24: right TM surroundin g tube [id number] MD NADER JONES E[facility] [address] [facility] [place] [address] 01/26/2024 14:42:55 01/26/2024 15:44:59 Dysfunction of right eustachian tube 0565479201 422252 H69.91 Retained right T-Tube (placed September 2014) Impacted c erumen in right ear 2279412189 623474 H61.21 Granulatio ns on tympanic membrane 985039690 H73.891 - 01/03/24: right TM surroundin g tube [id number] CARLOS CALVILLO MD [facility] [address] [place] [address] 06/30/2024 14:46:09 06/30/2024 15:52:02 Multiple benign melanocytic nevi 995530019 D22.5 L81.4 D18.01 L82.1 Benign appearing lesions. Reassuranc e given. Sun protection discussed with pt. Call with questions or concerns. [id number] TERESITA PEREZ MD [place] [facility] [address] [facility] [place] [address] 02/06/2025 07:59:13 02/06/2025 08:30:31 Dysfunction of right eustachian tube 3802041602 902260 H69.91 Retained right T-Tube (placed September 2014)- Right T-tube present Impacted c erumen in right ear 2880571924 957389 H61.21 Granulatio ns on tympanic membrane 978133291 H73.891 - 01/03/24: right TM surroundin g tube Health Concerns Section Related Observation LastModified by Organization Detai ls LastModified Time None Recorded Concern Status LastModified by Organization Details LastModified Time None Recorded Advance Directives Directive None Recorded Payers Insurance Date Sequence Insurance Name Policy Number Policy [place] Covered Member ID [place] Member ID Guarantor Name 02/14/2025 1 TARYN-NADER (PPO) [id number] 1 Virginia Vinson [id number] Yonis Vinson Notes Date Note Type Note Provider Name and Address Organization Details Recorded Time 07/28/2023 text/html Yonis returns today in follow up of his retained right T-tube which was placed in September 2014. He has had minimal drainage from the ear which he treats with Ciprodex drops as needed. His left ear is fairly asymptomatic. He continues to be pleased with his T-Tube, and has no major concerns. TERESITA PEREZ MD [address] [place] [address], [phone], [facility] 07/28/2023 08:58:18 01/03/2024 text/html Yonis Jj is seen today for evaluation of his right ear. He has a history of ETD with right MT placement in 2014. He says the right ear has been full and plugged up for 2 weeks. His hearing has been diminished. He denies discharge or fever. He has used Ciprodex drops for 7 days. JUSTINE DING APRN [address] [place] [address], [phone], [facility] 01/03/2024 10:40:21 01/26/2024 text/html Yonis Vinson (63M) visits our office for a follow up evaluation of his right ear.He has a history of ETD with right MT placement in 2014. He says the right ear has been improving on the course of Ciprodex drops. TERESITA PEREZ MD [address] [place] [address], [phone], [facility] 01/26/2024 15:29:19 06/30/2024 text/html ROS as noted in the HPI sk chlast seen Jul 2022 I am here for FBSE, no hx, no concerns. CARLOS CALVILLO MD [address] [place] [address], [phone], [facility] 06/30/2024 18:14:37 02/06/2025 text/html ROS as noted in the HPI Yonis visits us in office today to follow up on right ear tube and eustachian tube dysfunction. Yonis reports no issues with his ears today. He did feel some discomfort around 1 month ago from his right ear but the discomfort went away soon after. TERESITA PEREZ MD [address] [place] [address], [phone], [facility] 02/06/2025 08:31:42
--- OUTSIDE RECORDS SUMMARY | 2025-03-22 10:20 | XMS_ITS | Clinical Summary ---
[facility] Organization [facility] Address [address] [place] [address] Care Team Providers Care Certified Shorthand Reporter Name Role Phone Matthew Gardner MD Primary Care Provider [phone] Allergies Active Allergy Reactions Criticality Noted Date [...] 2) 2011 INFLUENZA VACCINE 12/22/2024 05/07/2021 Insurance [id number] PPO Member Subscriber Plan / Payer (Ef fective 2017-Present) Name:Yonis Gardner Relation to Subscriber:Self Name:Yonis Gardner Payer ID:[id number] (NAIC) Type:Not on file Address: [facility] [id number] [place] [id number] Care Teams Certified Shorthand Reporter Relationship Specialty Start Date End Date Matthew Gardner MD [address] [facility] [address] [facility] [place] [id number] PCP - General Internal Medicine 11/08/17
== END 2025-03-22 23:59 | disposition home or self-care (01) ==
LOC: RAD 09:54
PROVIDERS: PCP Internal Medicine; Visit Provider Internal Medicine
DX: J98.4 Other disorders of lung (principal); R91.1 Solitary pulmonary nodule
CPT/HCPCS: 71250